=== PATIENT | male | born 2005 | race Caucasian/White ===

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

== ENCOUNTER 2024-10-21 19:18 | Emergency (ER) | payer OTHER, SELFPAY ==
--- NOTE | ~2024-10-21 | XR_ITS ---
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 RESULT: Lines, tubes, and devices: None. Lungs and pleura: Ill-defined patchy airspace disease in the left lower lobe. Cardiomediastinal silhouette: Stable. Other: No acute osseous or upper abdominal finding. IMPRESSION: Ill-defined left lower lobe airspace disease, may represent pneumonia in the appropriate clinical con text. Reviewed, dictated and finalized at location K. RESSOR TECHNICIAN IMPRESSION: Ill-defined left lower lobe airspace disease, may represent pneumonia in the ap propriate clinical context.
[2024-10-21 19:28] VITALS: BP 120/73; PULSE 113; RESP 20; TEMP 36.8; O2SAT 98
--- NOTE | 2024-10-21 19:47 | ED_ITS ---
HPI - General Adult General Chief complaint: Upper Respiratory Infection Stated complaint: Cough/Vomiting/Sore Throat Source: patient and family Mode of arrival: ambulatory Limitations: no limitations History of Present Illness HPI narrative: Patient presents for evaluation of sick symptoms. Symptom onset 1 week ago. His primary concern is a cough. He cannot tell me whether it is productive. Denies any shortness of breath, wheezing, fever, chills, nausea, diarrhea. He has had some episodes of vomiting secondary to coughing episodes. He was originally taking DayQuil and NyQuil for symptoms. He had improvement in his symptoms with recurrence thereafter. His mother recently had which she states is a common cold. He smokes marijuana. He does not smoke tobacco. Related Data Home Medications ?Medication ?Instructions ?Recorded ?Confirmed ?Last Taken ?Type divalproex 500 mg tablet,delayed mg PO 10/21/24 Unknown History release hydroxyzine pamoate 25 mg capsule mg 10/21/24 Unknown History olanzapine 20 mg tablet mg 10/21/24 Unknown History trazodone 50 mg tablet mg 10/21/24 Unknown History Allergies Allergy/AdvReac Type Severity Reaction Status Date / Time guanfacine Allergy Unknown Unknown Verified 10/21/24 19:54 Review of Systems Review of Systems: CONSTITUTIONAL: Denies fever, chills, or sweats. EYES: Denies visual changes, redness, or discharge. ENT: Denies rhinorrhea, congestion, sore throat, or otalgia. CARDIOVASCULAR: Denies chest pain, palpitations, or edema. RESPIRATORY: Reports cough. Denies shortness of breath or wheezing. GASTROINTESTINAL: Reports vomiting secondary to coughing episodes. Denies nausea otherwise. Denies abdominal pain or diarrhea. GENITOURINARY: Denies dysuria or hematuria. SKIN: Denies rash or itching. MUSCULOSKELETAL: Denies back pain, joint pain, or myalgia. NEUROLOGIC: Denies headache, numbness, dizziness, or weakness. PSYCHIATRIC: Denies anxiety or depression. [facility] Past Medical History Medical History Bipolar disorder Fatty liver Asperger's disorder Does not like people touching him. Surgical History Surgical History Hx of cholecystectomy Hx of tonsillectomy Family History Family History Mother Family history non-contributory Social History Social History Substance use: current Substance use type: marijuana Gender identity (if verbalized by the patient): Male Spiritual care concerns: No Exam Narrative: GENERAL: Appears acutely ill but nontoxic. HEAD: Normocephalic, atraumatic. EYES: PERRLA and EOMI. ENT: Nares clear, no rhinorrhea or epistaxis. Mucous membranes moist. Oropharynx without tonsillar hypertrophy exudate or other lesions. Bilateral TMs pearly alexander nonbulging NECK: Supple. No adenopathy or masses. No carotid bruits or JVD CHEST: Wheezing noted in lung bustos bilaterally. Cough present on exam. HEART: Regular rate and rhythm. No murmur heard. Normal peripheral pulses. ABDOMEN: Soft, nontender, nondistended, normal active bowel sounds. EXTREMITIES: Normal range of motion. No edema. SKIN: Warm, dry, no rash. NEURO: No focal deficits. Alert and oriented x3. PSYCH: Normal mood and affect. Course Course Emergency Course: This is a 19-year-old male who presented for evaluation of sick symptoms. COVID and influenza were negative. Chest x-ray consistent with pneumonia. Will discharge with azithromycin and Augmentin. He has tolerated steroids in the past. Will also discharge with prednisone and albuterol. Increase hydration. [id number]-katlxdt agents for symptom management. Follow up with primary provi reji. Go to the ER for worsening symptoms. Patient and mother in agreement with plan of care. Level of Care: Express Care Visit Vital Signs Vital signs: Vital Signs Temperature 36.8 C 10/21/24 19:28 Pulse Rate 113 H 10/21/24 19:28 Respiratory Rate 20 10/21/24 19:28 Blood Pressure 120/73 10/21/24 19:28 Pulse Oximetry 98 10/21/24 19:28 Oxygen Delivery Room Air 10/21/24 19:28 Temperature 36.8 C 10/21/24 19:28 Pulse Rate 113 H 10/21/24 19:28 Respiratory Rate 20 10/21/24 19:28 Blood Pressure 120/73 10/21/24 19:28 Pulse Oximetry 98 10/21/24 19:28 Oxygen Delivery Room Air 10/21/24 19:28 Medical Decision Making Vital Signs Vital Signs: Vital Signs Temperature 36.8 C 10/21/24 19:28 Pulse Rate 113 H 10/21/24 19:28 Respiratory Rate 20 10/21/24 19:28 Blood Pressure 120/73 10/21/24 19:28 Pulse Oximetry 98 10/21/24 19:28 Oxygen Delivery Room Air 10/21/24 19:28 Temperature 36.8 C 10/21/24 19:28 Pulse Rate 113 H 10/21/24 19:28 Respiratory Rate 20 10/21/24 19:28 Blood Pressure 120/73 10/21/24 19:28 Pulse Oximetry 98 10/21/24 19:28 Oxygen Delivery Room Air 10/21/24 19:28 Lab Data Labs: Lab Results 10/21/24 Range/Units 19:40 POC Influenza A Ag Negative (Negative) POC Influenza B Ag Negative (Negative) POC SARS CoV-2 Ag Negative (Negative) Imaging Data Radiologist's impression: EXAMINATION: XR chest 2V Exam Date/Time: 10/21/2024 19:26 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 RESULT: Lines, tubes, and devices: None. Lungs and pleura: Ill-defined patchy airspace disease in the left lower lobe. Cardiomediastinal silhouette: Stable. Other: No acute osseous or upper abdominal finding. IMPRESSION: Ill-defined left lower lobe airspace disease, may represent pneumonia in the appropriate clinical context. Discharge Plan Discharge Clinical Impression: Community acquired pneumonia Patient Disposition: Home, Self-Care Condition: Stable Instructions: Antibiotic Form, Community Acquired Pneumonia (DC) Patient Language: Mohawk Prescriptions: New azithromycin 250 mg tablet See Rx Instructions .ROUTE .COMPLEX Qty: 6 0RF Rx Instructions: For 250 mg dose pack: take 500 mg today (day 1), then 250 mg for 4 days (days 2-5) amoxicillin-pot clavulanate 875-125 mg tablet 1 tablet PO Q12H Qty: 20 0RF prednisone 50 mg tablet 50 mg PO DAILY Qty: 5 0RF albuterol sulfate 90 mcg/actuation aero powdr breath act w/sensor 2 inh inhalation Q6H Qty: 1 0RF No Action trazodone 50 mg tablet divalproex 500 mg tablet,delayed release (DR/EC) PO olanzapine 20 mg tablet hydroxyzine pamoate 25 mg capsule Follow-up/Referrals: Jose Patino MD [Physician] - Time of Disposition: 20:02
[2024-10-21 20:00] LABS: EDCOVIDSCREEN Negative (Negative); EDINFLUASCREEN Negative (Negative); EDINFLUBSCREEN Negative (Negative)
== END 2024-10-21 20:05 | disposition home or self-care (01) ==
PROVIDERS: Emergency Provider Nurse Practitioner
DX: J18.9 Pneumonia, unspecified organism (principal); Z20.822 Contact with and (suspected) exposure to COVID-19; F84.5 Asperger's syndrome; K76.0 Fatty (change of) liver, not elsewhere classified; F12.90 Cannabis use, unspecified, uncomplicated
CPT/HCPCS: 71046; 87426; 87804; 99213; G0463

== ENCOUNTER 2024-12-18 12:59 | Emergency (ER) | payer SELFPAY ==
[2024-12-18 13:27] VITALS: BP 145/90; PULSE 98; RESP 15; TEMP 37; O2SAT 99
--- NOTE | 2024-12-18 14:23 | ED.URI ---
HPI - URI/Sore Throat General Chief Complaint: Upper Respiratory Infection Stated Complaint: cough, SOB Time Seen by Provider: 12/18/24 14:23 Focused HPI: This is a 19 year old male that presents to the ER for cough, vomiting, sore throat, shortness of breath. Reports he has been sick since [place]. Denies fever, chest pain. GENERAL: Well-appearing, well-nourished, and in no acute distress. HEAD: Normocephalic, atraumatic. CHEST: Clear to auscultation. ?No respiratory distress. HEART: Regular rate and rhythm.? NEURO: ?Alert and oriented x3. Patient screened in triage and initial orders placed.? ?Additional care and disposition to be based upon?diagnostic testing and treatment. Related Data Home Medications ?Medication ?Instructions ?Recorded ?Confirmed ?Last Taken ?Type divalproex 500 mg tablet,delayed mg PO 10/21/24 Unknown History release hydroxyzine pamoate 25 mg capsule mg 10/21/24 Unknown History olanzapine 20 mg tablet mg 10/21/24 Unknown History trazodone 50 mg tablet mg 10/21/24 Unknown History Allergies Allergy/AdvReac Type Severity Reaction Status Date / Time guanfacine Allergy Unknown Unknown Verified 10/21/24 19:54 PMFSH Past Medical History Medical History Bipolar disorder Fatty liver Asperger's disorder Does not like people touching him. Surgical History Surgical History Hx of cholecystectomy Hx of tonsillectomy Family History Family History Mother Family history non-contributory Social History Social History Substance use: current Substance use type: marijuana Gender identity (if verbalized by the patient): Male Spiritual care concerns: No Course Vital Signs Vital signs: Vital Signs Temperature 98.6 F 12/18/24 13:27 Pulse Rate 98 12/18/24 13:27 Respiratory Rate 15 12/18/24 13:27 Blood Pressure 145/90 H 12/18/24 13:27 Pulse Oximetry 99 12/18/24 13:27 Oxygen Delivery Room Air 12/18/24 13:27 Temperature 98.6 F 12/18/24 13:27 Pulse Rate 98 12/18/24 13:27 Respiratory Rate 15 12/18/24 13:27 Blood Pressure 145/90 H 12/18/24 13:27 Pulse Oximetry 99 12/18/24 13:27 Oxygen Delivery Room Air 12/18/24 13:27 MDM - URI/Sore Throat MDM Narrative Medical decision making narrative: Patient left after medical screening exam and before any further evaluation or management Discharge Plan Discharge Clinical Impression: Upper respiratory infection Qualifiers: URI type: unspecified viral URI Qualified Code(s): J06.9 - Acute upper respiratory infection, unspecified Patient Disposition: Elopement After Seen by Prov Condition: Stable Patient Language: Faroese Prescriptions: No Action trazodone 50 mg tablet divalproex 500 mg tablet,delayed release (DR/EC) PO olanzapine 20 mg tablet hydroxyzine pamoate 25 mg capsule azithromycin 250 mg tablet See Rx Instructions .ROUTE .COMPLEX Qty: 6 0RF Rx Instructions: For 250 mg dose pack: take 500 mg today (day 1), then 250 mg for 4 days (days 2-5) amoxicillin-pot clavulanate 875-125 mg tablet 1 tablet PO Q12H Qty: 20 0RF prednisone 50 mg tablet 50 mg PO DAILY Qty: 5 0RF albuterol sulfate 90 mcg/actuation aero powdr breath act w/sensor 2 inh inhalation Q6H Qty: 1 0RF Follow-up/Referrals: PHYSICIAN,MAT MAN [Primary Care Provider] -
--- NOTE | 2024-12-18 14:57 | PC.NURSE ---
Pt not in waiting room for [facility] RN to obtain labs
--- NOTE | 2024-12-18 16:00 | PC.NURSE ---
Pt called for vital signs, no response
--- NOTE | 2024-12-18 16:10 | PC.NURSE ---
Pt called for a second time, no response, not in waiting room
== END 2024-12-18 16:31 | disposition left against medical advice (07) ==
LOC: ANHED 16:35
PROVIDERS: Emergency Provider Physician Assistant
DX: J06.9 Acute upper respiratory infection, unspecified (principal); F84.5 Asperger's syndrome; Z90.49 Acquired absence of other specified parts of digestive tract; Z79.899 Other long term (current) drug therapy; F31.9 Bipolar disorder, unspecified
CPT/HCPCS: 99281

== ENCOUNTER 2025-02-08 10:45 | Emergency (ER) | payer SELFPAY ==
--- NOTE | ~2025-02-08 | XR_ITS ---
XR knee LT 3V 02/08/2025 12:00 INDICATION: Left knee pain PROCEDURE: 3 views left the COMPARISON: No prior studies for comparison. FINDINGS: Fracture, dislocation or subluxation is not identified. There is sclerosis of the medial ti bial plateau. No discrete fracture line identified. The soft tissues appear within normal limits. No foreign bodies are identified. IMPRESSION: 1: Sclerosis medial tibial plateau, possibly technical. If there is concern for plateau fracture, cor relation with CT or MRI recommended. Reviewed, dictated and finalized at location A. IMPRESSION: 1: Sclerosis medial tibial plateau, possibly technical. If there is concern for plateau fracture, correlation with CT or MRI recommended.
--- NOTE | ~2025-02-08 | XR_ITS ---
EXAMINATION: XR chest 2V 02/08/2025 11:51 INDICATION: Cough PROCEDURE: 2 view chest COMPARISON: 02/18 FINDINGS: The lungs are clear. The cardiomediastinal silhouette is within normal limits. There are no pleural effusions. There is no pneumothorax suspected. There are cholecystectomy clips. IMPRESSION: 1: NO ACUTE CARDIOPULMONARY DISEASE. Reviewed, dictated and finalized at location A.
--- OUTSIDE RECORDS SUMMARY | 2025-02-08 10:47 | XMS_ITS | Clinical Summary ---
Author Organization [facility] Address [address] [place] [address] Phone Care Team Providers Care Securities Lending Trader Name Role Phone Provider, None Primary Care Provider Unavailabl e Allergies Active Allergy Reactions Criticality Noted Date Comments Guanfacine Rash,Swelling Medium 12/20/2015 Medications ondansetron (ZOFRAN-ODT) 4 MG TABLET DISPERSIBLE Take 1 Tablet by mouth every 8 hours as needed for Nausea - 1st line. 10 Tablet 3 Active methylPREDNISolo ne (MEDROL DOSPACK) 4 MG Tablet Therapy Pack See product package insert for dosing schedule 21 Tablet 4 Active traMADol (ULTRAM) 50 MG TabletIndication s:Sunburn due to tanning bed radiation Take 1-2 Tablets by mouth every 6 hours as needed for Moderate or more severe pain. 20 Tablet 4 Active Social History Tobacco Use Types Packs/Day Years Used Date Smoking Tobacco: Some Days Cigarettes Smokeless Tobacco: Never Tobacco Cessation:Ready to Q uit: Not Asked; Counseling Given: Not Answered Alcohol Use Standard Drinks/Week Comments Never 0 (1 standard drink = 0.6 oz pur e alcohol) Sex and Gender Information Value Date Recorded Sex Assigned at Not on file Legal Sex Male 7:18 PM CDT Gender Identity Not on file Sexual Orientation Not on file Last Filed Vital Signs Vital Sign Reading Time Taken Comments Blood Pressure 122/63 11/20/2023 3:43 AM UNIT ASSISTANT Pulse 78 11/20/2023 3:43 AM UNIT ASSISTANT Temperature 36.6 C (97.9 F) 11/20/2023 3:01 AM UNIT ASSISTANT Respiratory Rate 19 11/20/2023 3:01 AM UNIT ASSISTANT Oxygen Saturation 99% 11/20/2023 3:43 AM UNIT ASSISTANT Inhaled Oxygen Concentration - - Weight 117.9 kg (260 lb) 11/20/2023 3:01 AM UNIT ASSISTANT Height 176.5 cm (5' 9.5 ) 11/20/2023 3:01 AM UNIT ASSISTANT Body Mass Index 37.84 11/20/2023 3:01 AM UNIT ASSISTANT Plan of Treatment Health Maintenance Due Date Last Done Comments Hepatitis C Virus (HCV) Screening 2003 Pneumococcal Immunization Combined (1 of 1 - PPSV23) 2009 10/31/2004, 10/31/2004, 06/06/2004, Additional history exists Influenza Immunization (#1) 06/22/202401/20, 02/07/2016, 10/09/2012, Additional history exists SARS-COV-2 Immunization ( season) 2024 12/15/2021, 09/01/2021 Respiratory Syncytial Virus (RSV) Immunization (Adult) (1 - 1-dose 75+ series) 2078 Hepatitis B Immunization Completed 004, 03/23/2004, 2003, Additional history exists DTaP/Tdap/Td Immunization Discontinued 2013, 11/03/2008, 11/03/2008, Additional history exists TdaP Immunization Completed 04/30/2014 Human Papillomavirus (HPV) Immunization Completed 05/03/2021, 02/07/2016 Meningococcal Immunization (ACWY) Completed 05/03/2021, 02/07/2016, 02/07/2016 Meningococcal B Immunization Completed 04/07/2022, 11/25/2021 Rotavirus Immunization Aged Out No lo nger eligible based on patient's age to complete this topic Insurance [place] MEDICA[place] Care Teams Securities Lending Trader Relationship Specialty Start Date End Date Provider, None [place] PCP - General 09/08/19
--- OUTSIDE RECORDS SUMMARY | 2025-02-08 10:47 | XMS_ITS | Encounter Summary ---
Author Organization [facility] Address [address] [place] [address] Care Team Providers Care Public Health Physician Name Role Phone Abhijit López MD Primary Care Provider [phone] Leanne Grimes DO Unavailable [phone] Reason for Visit * Reason Onset Date Comments Forms/questionnaires 08/17/2020 Encounter Details Date Type Department Care Team (Late st Contact Info) Description 08/17/2020 Telephone [facility] [address] [place] [id number] Abhijit López MD [address] [place] [phone] Forms/questionnaires Social History Tobacco Use Types Packs/Day Years Used Date Smoking Tobacco: Passive Smo ke Exposure - Never Smoker Smokeless Tobacco: Never Alcohol Use Standard Drinks/Week Comments No 0 (1 standard drink = 0.6 oz pur e alcohol) Sex and Gender Information Value Date Recorded Sex Assigned at Not on file Legal Sex Male 5:42 AM 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 Answer Date of Assessment Author No 02/15/2017 4:27 PM CDT Devin Giraldo RN * Is person blind or have serious difficulty seeing? Answer Date of Assessment Author No 02/15/2017 4:27 PM CDT Devin Giraldo RN * Does person have serious difficulty walking/climbing stairs? Answer Date of Assessment Author No 02/15/2017 4:27 PM CDT Devin Giraldo RN * Does person have difficulty dressing/bathing? Answer Date of Assessment Author No 02/15/2017 4:27 PM CDT Devin Giraldo RN * Does person have difficulty doing errands alone? Answer Date of Assessment Author No 02/15/2017 4:27 PM CDT Devin Giraldo RN documented as of this encounter Mental Status * Does person have difficulty concentrating/remembering/making decisions? Answer Entry Date Author No 02/15/2017 4:27 PM CDT Devin Giraldo RN documented in this encounter Miscellaneous Notes * Telephone Encounter - Esthela Goncalves - 08/17/2020 9:32 AM CDT Sharon Jacobo from the [facility] called in requesting a letter of evaluation for the pt when he was diagnosed with Autism and Asperger's. If letter can be completed she would like for it to be faxed to [phone] documented in this encounter Plan of Treatment Not on file documented as of this encounter Visit Diagnoses Not on filedocumented in this encounter Care Teams Public Health Physician Relationship Specialty Start Date End Date Abhijit López MD [address] [place] [phone] PCP - General 12/31/18 Leanne Grimes DO [address] [place] [id number] Feather Boner Student Resident 04/21/19 documented as of this encounter
--- OUTSIDE RECORDS SUMMARY | 2025-02-08 10:47 | XMS_ITS | Data Portability ---
Author Organization [place] - [facility] [employer] [facility] Address [address] [place] [address] Assessment No assessment recorded. Plan of Treatment Reminders Order Date Submit Date Provider Last Modified By Organization Details Last Modified Time Details Appointments None recorded. Lab None recorded. Referral None recorded. Procedures None recorded. Surgeries None recorded. Imaging None recorded. Medication Orders cefpodoxime 200 mg tablet 2024 [facility], [address], [place], [address], 16:59:17 doxycycline hyclate 100 mg capsule 2024 025 [facility], [address], [place], [address], 16:59:15 albuterol sulfate HFA 90 mcg/actuati on aerosol inhaler 2024 025 [facility], [address], [place], [address], 17:03:19 Patient TargetsNo targets recorded. Patient Instructions Encounter Date Encounter Id Patient Instructions Last Modified By Organization Details Last Modified Time 11/01/2024 [id number] pneumonia: care instructions [email or web address] Not available 11/01/2024 16:59:09 Summary of Today's Visit: During today's visit, we discussed your persistent pneumonia symptoms, even after completing your previous antibiotic regimen. You have been experiencing a persistent cough, leading to vomiting of mucus, and your voice has been affected. You mentioned a history of marijuana smoking but denied any other lung or immune issues. Treatment Plan: Since the previous antibiotic treatment did not fully resolve your symptoms, we will start you on a new treatment plan with two antibiotics, cefpodoxime and doxycycline, which are more effective for individuals with a smoking history. Take medication as directed. Monitoring and Follow-Up: If possible, get an oxygen monitor to keep track of your oxygen levels. Your oxygen saturation should be 94% or above. If it drops below this level, or if you have worsening breathing difficulties, seek urgent medical attention. Additionally, arrange a follow-up appointment with a primary care provider next week to evaluate your recovery. You may need help from your mom if you are unsure about how to arrange this. Probiotics and Hydration: Due to the extended use of antibiotics, start taking probiotics to maintain healthy gut bacteria. You can consume probiotic-rich foods like yogurt, pickles, or fermented foods, or buy dicm-tyh-jiktouh probiotic supplements. Also, ensure you stay well-hydrated by drinking plenty of fluids to help alleviate your symptoms and support recovery. Important Reminders: Make sure to seek in-person medical evaluation if your condition does not improve or worsens. Remember to take your antibiotics as prescribed and monitor your symptoms closely. ALBUTEROL INHALER ALSO PROVIDER FOLLOW UP NEXT WEEk in 1-3 days Worsening symptoms go to emergency room. [email or web address] Not available 11/01/2024 17:04:34 Reason for Referral None Reported. Medical Equipment None Reported. Allergies Allergen ID Allergen Name Allergen Category Reaction Reaction Severity Criticality Documentation Date Start Date Code Code System Note Provider Name and Address Organization Details Recorded Time 028498 guanfacin e medicatio n Not available Not available Not available 11/01/2024 37096 RxNorm Not Available [facility] 16:49:31 Medications Name Sig Start Date Stop Date Status Note LastModified by Organization Details LastModified Time doxycycline hyclate 100 mg capsule Take 1 capsule twice a day by oral route as directed for 5 days. 2024 active Not Available Not Available Not Avai lable cefpodoxime 200 mg tablet Take 1 tablet every 12 hours by oral route as directed for 5 days. 2024 active Not Available Not Available Not Avai lable divalproex 500 mg tablet,delay ed release active ADDED BY VANESSA T: Not Available Not Available Not Available albuterol sulfate HFA 90 mcg/actuatio n aerosol inhaler Inhale 2 puffs every 4 hours by inhalation route as needed for 14 days. 2024 active Not Available Not Available Not Avai lable olanzapine 20 mg tablet active ADDED BY VANESSA T: Not Available Not Available Not Available Vitals None Recorded Social History None recorded. Functional Status None recorded. Mental Status None recorded. Family History Nothing Reported. Medical History No medical history recorded. Past Encounters Encounter ID Performer Location Encounter Start Date Encounter Closed Date Diagnosis/Indication Diagnosis SNOMED-CT Code Diagnosis ICD10 Code Diagnosis Note [id number] Adriane Patrick, GUILLERMO [facility] [address] [place] [address] 11/01/2024 16:49:52 11/01/2024 22:56:42 Community acquired pneumonia [id number] J18.9 Pneumonia - The patient was previously diagnosed with pneumonia, treated with azithromyc in but is still experienci ng symptoms like coughing and throwing up mucus, indicating persistenc e of the condition. - Prescribe Cefpodoxim e twice a day for at least five days.- Prescribe doxycyclin e as it covers more bacteria, especially for individual s who smoke.- Suggest purchasing an oxygen monitor to check oxygen levels at home, ensuring numbers are 94 or above.- Encourage follow-up with a primary care doctor next week to monitor recovery and vital signs.- Advise visiting the ER for IV antibiotic s if breathing worsens.- Recommend starting a probiotic due to the increased use of antibiotic s, suggesting foods like yogurt or fermented foods.- Emphasize hydration to help alleviate symptoms. Health Concerns Section Related Observation LastModified by Organization Detai ls LastModified Time None Recorded Concern Status LastModified by Organization Details LastModified Time None Recorded Advance Directives Directive None Recorded Payers Encounter Date Sequence Insurance Name Policy Number Policy Robison Covered Member ID Robison Member ID Guarantor Name 11/01/2024 1 LIAMShawn [facility] [id number] [employer] [id number] IP[employer] Francee r 11/01/2024 2 *SELF PAY* [id number] [employer] [id number] [employer] Notes Date Note Type Note Provider Name and Address Organization Details Recorded Time 01/11/202 5 text/html Call connected, patient greeted. Patient name, , telephone number and pharmacy, and location verified verbally with the patient. Telemedicine limitations reviewed, answered all questions the patient had about the telehealth interaction, and verbal consent obtained to treat. Clinician attests they are physically located in the following state at the time of visit: [place]. The patient also consents to the use of AI scribe technology. CC: Persistent pneumonia symptoms HPI: The patient presents with persistent pneumonia symptoms despite completing prescribed antibiotic treatment. The onset was noted around [place], and an official diagnosis via chest X-ray was confirmed approximately one week ago. The patient was initially prescribed azithromycin (Z-Zelalem) with a dosing regimen of two tablets on the first day, followed by one tablet daily. Symptoms have included significant coughing, frequently causing vomiting of mucus, and notable hoarseness of voice. Since starting the antibiotics, there has been some reduction in the vomiting frequency; however, the patient still feels unwell. The patient denies any history of smoking tobacco, though reports smoking marijuana. They do not consume alcohol currently and have no history of diabetes, prediabetes, asthma, or immunosuppressive conditions. There have been no known exposures to individuals with similar symptoms or recent COVID-19 exposures. The patient does not possess an oxygen monitor at home. The patient expressed difficulty in contacting the prior clinic due to long wait times and was unable to follow up easily. Additionally, the patient is not aware of their primary care physician, as these arrangements are typically managed by their mother. The patient denies allergies to antibiotics but confirmed an allergy to an unspecified item called 10x. Adriane Patrick, [employer], [address], [facility] 11/01/2024 17:04:40
--- OUTSIDE RECORDS SUMMARY | 2025-02-08 10:47 | XMS_ITS | Clinical Summary ---
Author Organization [facility] Address [address] [place] [address] Care Team Providers Care [employer]orer [employer] Name Role Phone Abhijit López MD Primary Care Provider [phone] Leanne Grimes DO Unavailable [phone] Source Comments [facility],non-owned Affiliates and Associated Physician Practices is amultiple site organization consisting of ambulatory clinics and hospital sitesin [place], [place], [place] and [place]. This disclosure is being madepursuant to the Care Everywhere program and may not contain all information available regarding this patient. Last updated 18.[facility] Allergies Active Allergy Reactions Criticality Noted Date Comments Guanfacine Rash Low 12/20/2015 Medications * Be aware that medications may not be up to date on this document. Alwaysverify current medications with the patient. ABSORICA 40 MG capsule TAKE 2 CAPSULES BY MOUTH DAILY 60 capsule 9 Active Additional Information Patient not taking.Reported on 02/07/2020 mupirocin (BACTROBAN) 2 % ointment Apply to affected area 2 times daily 15 g 1 9 Active Additional Information Patient not taking.Reported on 07/21/2019 metFORMIN (GLUCOPHAGE) 500 MG tablet Take 500 mg by mouth once daily Active ARIPiprazole (ABILIFY) 10 MG tablet Take 10 mg by mouth once daily Active ISOtretinoin 40 MG capsuleIndicati ons:Acne vulgaris Take one tablet by mouth daily with fatty meal. #30DS 30 capsule 9 Active Additional Information Patient not taking.Reported on 02/07/2020 hydrOXYzine pamoate (VISTARIL) 25 MG capsule TK ONE C PO HS PRN 0 Active PARoxetine (PAXIL) 30 MG tablet TK 1 T PO D 0 Active Active Problems Problem Noted Date Diagnosed Date Concern with appearance of ear 02/25/2020 Assessment & Plan (02/25/2020 6:40 PM CDT): L ear exam shows dried blood. R ear shows abnormal anatomy. Tympanogram completed that shows concern for R ear perforation -old vs new is difficult to say. At this time given multiple ear findings and history with bleeding from L ear will refer to ENT for further evaluation and management. Discussed in meantime, pt should maintain good ear care, avoid loud noises including his ear buds. Emesis 02/25/2020 Assessment & Plan (02/25/2020 6:45 PM CDT): 14-year-old male with ADHD/ODD, ANDRADE w/ fibrosis, obesity, recently seen in ED yesterday for 2 weeks of intermittent emesis after feeds. Pt was also seen by GI on 02/19 via [facility] and at time, given instruction to start PPI and follow up liver labs (completed in ED) here today for follow up. At this time review of labs in conjunction with exam today, re--assuring. No signs of acute bleeds or toxic signs on exam. Most likely the intermittent emesis seems to be due to GERD vs. PUD. At this time, encouraged family to start PPI therapy and maintain for at least 3 months. If no response to symptoms, will need to consider further evaluation and follow up with GI. Discussed red flag symptoms such as bloody emesis that would require urgent evaluation. History of staph infection 08/11/2019 Secondary impetiginization 05/29/2019 Cheilitis 03/17/2019 High risk medications (not anticoagulants) long- term use 03/17/2019 Acne cystica 01/22/2019 Encounter for long-term (cur rent) use of high-risk medication 01/22/2019 Back/shoulder pain 10/31/2018 Assessment & Plan (10/31/2018 9:28 PM [employer]AINABLE AGRICULTURE FACULTY): Has been having shoulder pain and midline back pain. Responsive to tylenol/ibuprofen. Has not started to PT yet. Etiology is most likely related to muscle spasm, rheumatologic disease are less likely given his history of no joint tenderness, swelling. Plan: C spine XR Thoracic spine XR If Xrays are clear for any dislocation/fracture start PT (referral made during the visit) Continue ibuprofen/tylenol for symptomatic pain relief Heat packs Be careful about Sleep hygiene Warming exercise prior to sportive activities RTC in 2 mo. WCC (well child check) 01/28/2018 Assessment & Plan (01/28/2018 10:38 AM CDT): Lane Busch is here for his adolescent well child check and has decreasing BMI attributed to weight management with the help of [facility] straight cutter machine and placement in special school with an IEP and counseling for mood disorder and anger managment. Immunizations: needs HPV Has dental home Age appropriate anticipatory guidance provided Return for next well child check; sooner if concerns arise. 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 On abilify for the last 5 mo- switched from Prozac- he reports his mood is ok. No SI at this moment. Assessment & Plan (01/28/2018 10:43 AM CDT): PHQ9 positive for dysthymia Followed by school therapist with concerns for suicidal thoughts and auditory hallucinations Positive family history of mental health problems Social service consult Patient has psych appointment March 20, also referred to [facility] in [place] Start Prozac 10 mg RTC one month Closed fracture of phalanx of left great toe 06/2018 Assessment & Plan (12/28/2017 10:04 PM SUSTAINABLE AGRICULTURE FACULTY): Assessment: ~1 week patient injured left first toe which was subsequently found to have a fracture with concern for involvement of growth plate. Extremity currently tender to palpation but neurovascularly intact. Plan: Referral to Orthopedic surgery for evaluation Tylenol prn for pain control Acne vulgaris 10/17/2017 Assessment & Plan (10/31/2018 9:18 PM SUSTAINABLE AGRICULTURE FACULTY): Treated with doxycyline ~6 mo ago and referral made to dermatology however he did not follow up with Derm clinic. Continues to have cystic acne on his back and multiple scars on his face. Plan: Re start Doxycyline for 3 mo and f.u with dermatology Continue local benzoyl peroxide as well. Assessment & Plan (01/28/2018 10:41 AM CDT): Cystic acne - face and back Rx Doxycycline Refer to Dermatology Assessment & Plan (12/28/2017 10:05 PM SUSTAINABLE AGRICULTURE FACULTY): Assessment: Lane presents with a two week history of worsening acne with pustule formation and drainage refractory to current home skin regimen. Patient has previously been trialed on Benzaclin which was moderately effective in temporary control of symptoms. Plan: Doxycycline 100 mg BID until symptoms persist Benzoyl Peroxide 10% cream Counseled to perform gentle skin hygiene Referral to Pediatric Dermatology Assessment & Plan (10/17/2017 11:21 AM SUSTAINABLE AGRICULTURE FACULTY): Patient with acne on face and back with some scarring and picking present. Plan: - Encouraged washing face twice per day - Will prescribe benza-clin initially daily then BID - Follow up in 3 weeks for acne - may need systemic antibiotics Influenza A 10/17/2017 Assessment & Plan (10/17/2017 11:18 AM SUSTAINABLE AGRICULTURE FACULTY): 12 year old with cough, fatigue, vomiting and sister with influenza A. Duration of symptoms 1.5 days. Tested positive for influenza A in clinic today. Plan: Supportive care including hydration, rest Tamiflu 75 mg BID for five days Encouraged hand-washing To RTC for persistent vomiting, decreased hydration Preseptal cellulitis of left eye 10/17/2017 Assessment & Plan (10/17/2017 11:20 AM SUSTAINABLE AGRICULTURE FACULTY): Patient with preseptal cellulitis of left eye - no pain with eye movement, no vision change concerning for orbital cellulitis Plan: - Clindamycin for 10 days - If pain with eye movements, rapid swelling or changes in vision go to ED Sudden visual loss of right eye 07/19/2017 Assessment & Plan (07/19/2017 12:11 PM CDT): Etiology unclear. No vascular disorder in family. Differential diagnoses have idiopathic vision loss, ocular migraine and other ocular disease. Plan: Referral made to Ophthalmology Myalgia 06/01/2017 Assessment & Plan (06/06/2017 9:35 AM CDT): C/o LE pain, muscle pains. Recent URI and continued viral symptoms. No trauma. 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 Currently participating in weight management clinic at [facility]. Plan: -Continue to follow Assessment & Plan (11/24/2016 4:08 PM SUSTAINABLE AGRICULTURE FACULTY): Assessment: Working on healthy eating/increased physical activity. Currently participating in weight management clinic at [facility]. Plan: -Continue to follow Mood disorder 11/24/2016 Oppositional defiant disorder 11/24/2016 Assessment & Plan (11/24/2016 3:00 PM SUSTAINABLE AGRICULTURE FACULTY): Assessment: Previously diagnosed with ODD. Gets therapy through school. Has upcoming appointment with Psychologist. Plan: -Referral to Psychiatry -F/u at next visit in 2 months ADHD (attention deficit hyperactivity disorder) 11/24/2016 Depression 11/24/2016 Assessment & Plan (02/25/2020 6:47 PM CDT): No SI or plans today. Pt states mood is little down. Therapist is aware already. Encouraged pt to discuss with psychiatrist and identifying hunt[place] people (therpaist, parents, etc) to discuss any concerns that may arise. Given resources for community resources as well. Assessment & Plan (07/19/2017 12:11 PM CDT): PHQ-9 depression screening (+) for mild depression. He is not using any medication now. Referral made to Psychology. Assessment & Plan (11/24/2016 4:08 PM SUSTAINABLE AGRICULTURE FACULTY): Assessment: PHQ-9 score 10 today. Endorses depressive symptoms daily. Previously on fluoxetine 10 mg, not currently on any medications. Concern for exacerbation of ODD/bahvioral issues with starting anti depressant medications. Will defer to Psychiatry for treatment of multiple Psychiatric problems. Plan: -Referral to Psychiatry Sleep disorder 11/24/2016 Assessment & Plan (11/24/2016 2:51 PM SUSTAINABLE AGRICULTURE FACULTY): Assessment: Has trouble falling asleep, stays up late playing games and usually goes to bed around 3am. As a result, falls asleep at school. Plan: -Prescription for Melatonin 5 mg Encounter for WCC (well child check) with abnorm al findings 11/24/2016 Assessment & Plan (11/24/2016 3:00 PM SUSTAINABLE AGRICULTURE FACULTY): Lane Busch is here for his adolescent well child check and has normal growth with good interval weight gain and normal development. Immunizations up to date Dental referral for prevention Age appropriate anticipatory guidance provided Return in 2 months Behavior concern 11/24/2016 Assessment & Plan (12/28/2017 10:15 PM SUSTAINABLE AGRICULTURE FACULTY): Assessment: Over the past 6 months, patient has been experiencing a depressed mood associated comments referring to suicidal ideations. Evaluated by therapist who has noted symptoms associated depression, SI requiring creation of a safety plan and auditory hallucinations. During interview, patient denies SI/HI/AVH and that his previous comments have been vocalized due to frustration. Plan Contact therapist at [facility] for further details into patient's case Counseled to continue working with therapist at scheduled appointments Follow up at [facility] in 2-[address] Velasquez or Dr. Vasquez Consideration for initiation of anti-depressants based on communication with the therapist as well as reevaluation during visit Per mother, patient has follow-up appointment with psychology in February Assessment & Plan (11/24/2016 4:04 PM SUSTAINABLE AGRICULTURE FACULTY): Assessment: H/o multiple behavioral diagnoses, including ODD, Mood disorder, ADHD, depression, Asperger's. Need to clarify diagnoses with Psychiatrist, will defer medication initiation until Psych diagnoses addressed. Plan: -Referral to Psychiatry -Readdress at follow up appt in 2 months Liver enzyme elevation 09/29/2015 Overview (10/19/2015): Test 07/20/14 07/07/15 10/13/15 ALT 63 85 139 AST 50 47 87 T bili 0.5 0.4 0.3 C bili 0.18 GGT Alb 4.8 4.9 4.5 Liver ultrasound: Mild to mod steatosis 07/21/15 MARNIE neg ASMA (0-19) 9 LKMA (<20) 1.9 HAV Kayla neg HBVsAg neg HBVcAB IgM Neg HCV Kayla neg Lipid profile Ferritin 87 Ceruloplasmin 34 Hgb A1C 5.7 PT/PTT Alpha-1-AT level 95 -phenotype MZ Med hepatic toxicity: Clonidine 0 Focalin 1+ Fluoxetine 1+ modest, transient elevations Lamotrigine 1+ Assessment & Plan (01/19/2017 5:59 PM CDT): Assessment: Lane is a 11 y.o male with history of autism, behavior problems, and fatty liver disease who presents for RUQ pain, elevated liver enzymes, and elevated GGT. RUQ ultrasound shows gallstones. Pain has improved and labs normalizing. Plan: - Sedated MRCP this afternoon, follow-up official read. - NPO (sips with meds) on MIVF - Return to regular diet after MRCP and saline lock IV - continue home Seroquel 50 mg at bedtime - Nexium 20 mg iv - Strict I/Os - Vitals q 8 hrs Assessment & Plan (01/18/2017 2:46 PM CDT): Assessment: Lane is a 11 y.o male with history of autism, behavior problems, and fatty liver disease who presents for RUQ pain, elevated liver enzymes, and elevated GGT. Given history of non-alcoholic fatty liver diease and 3.4 kg weight gain over past month, elevated ALT/AST and GGT and upper quadrant pain may be due to worsening NAFLD. Also being worked up for autoimmune hepatitis and labs currently pending. Also could consider cholelithiasis given obese and family history. However, not symptomatic with meals and diagnosis is more common in obese females. Plan: - RUQ ultrasound + doppler to evaluate liver and gallbladder - NPO (sips with meds) on MIVF - Return to regular diet after Ultrasound - continue home Seroquel 50 mg at bedtime - Nexium 20 mg iv - Strict I/Os - Vitals q 8 hrs Assessment & Plan (01/18/2017 12:45 AM CDT): Assessment: Lane is a 11 y.o male with history of autism, behavior problems, and fatty liver disease who presents for RUQ pain, elevated liver enzymes, and elevated GGT. Given history of non-alcoholic fatty liver diease and 3.4 kg weight gain over past month, elevated ALT/AST and GGT and upper quadrant pain may be due to worsening NAFLD. Also being worked up for autoimmune hepatitis and labs currently pending. Also could consider cholelithiasis given obese and family history. However, not symptomatic with meals and diagnosis is more common in obese females. Plan: -Admit to [facility] team/Dr. Lin -NPO (sips with meds) on MIVF. GI considering obtaining ultrasound in AM -f/u up labs obtained in ED per recommendation of Dr. Nettles -continue home Seroquel 50 mg at bedtime -Nexium 20 mg iv -Strict I/Os -Consider nutrition consult -Vitals q 8 hrs Assessment & Plan (11/24/2016 3:00 PM SUSTAINABLE AGRICULTURE FACULTY): Assessment: History of elevated transaminases, biopsy in 01/2016 showed steatohepatitis, Fibrosis stage 1A. Mom has not been able to make an appointment for f/u with Dr. Nettles. Plan: -Number to GI scheduling provided today Adenoid hypertrophy 02/11/2013 Left AOM and externa 02/11/2013 Assessment & Plan (06/06/2017 9:31 AM CDT): Erythematous L TM with purulent effusion in setting of recent URI consistent with acute otitis. Unable to fully visualize TM to determine if scarring vs residual perforation from prior tube placement. Purulent drainage in canal with mild canal wall erythema. Will treat as AOM and externa based on exam. Ciprodex drops Amoxcillin x 7 days If symptoms return, instructed to contact ENT Assessment & Plan (11/24/2016 4:09 PM SUSTAINABLE AGRICULTURE FACULTY): Assessment: History of multiple ear infections. Ears scarred on exam today. Hearing decreased in left ear, normal in right. No signs of infection. Plan: -Repeat hearing screen and ear exam at next visit Autistic disorder 01/06/2013 Assessment & Plan (11/24/2016 3:59 PM SUSTAINABLE AGRICULTURE FACULTY): Assessment: Previously diagnosed with autism. Attends 7th grade at [employer], has IEP. Getting therapy at school, has upcoming appt with Psychology. Plan: -Referral to Psychiatry -Continue to monitor, f/u in 2 months Gallstones Fatty liver disease, nonalcoholic Immunizations Immunization Administration Dates Next Due DTaP VACCINE IM (6wk-6yrs) 11/03/2008,,03/23/2004,2003, HEP A PEDS 2 DOSE 06/01/2006,11/02/2005 HEP B VACCINE, PED/ADOL 03/23/2004,2003,,2003 HIB-PRP-T 4 DOSE 10/31/2004,03/23/2004, 4,2003 Human Papilloma Virus Vaccine 02/07/2016 INFLUENZA A [id number] VACCINE 02/17/2010, 0 INFLUENZA VACCINE 02/07/2016, 2,08/22/2011,10/29/2009, MENINGOCOCAL MENINGITIS 02/07/2016 MMR 02/26/2008,10/31/2004 POLIO IPV 11/03/2008,03/23/2004,2003 ,2003 Pneumococcal Pcv13 Conj 10/31/2004,06/06/2004,,2003 TDAP (7yrs+) 04/30/2014 VARICELLA 02/26/2008,10/31/2004 Family History Medical History Relation Name Comments Bipolar Disorder Father Schizophrenia Father Other Mother gallbladder rem zach Anesthesia Reaction Neg Hx Asthma Neg Hx Bleeding Disorders Neg Hx CVA Neg Hx Cancer - Breast Neg Hx Cancer - Other Neg Hx Cancer - Skin, Melanoma Neg Hx Cancer - Skin, Non Melanoma Neg Hx Childhood Hearing Disorder Neg Hx Eczema Neg Hx Hemophilia Neg Hx Liver Disease Neg Hx Psoriasis Neg Hx Relation Name Status Comments Father Mother Social History Tobacco Use Types Packs/Day Years Used Date Smoking Tobacco: Passive Smo ke Exposure - Never Smoker Smokeless Tobacco: Never Alcohol Use Standard Drinks/Week Comments No 0 (1 standard drink = 0.6 oz pur e alcohol) Sex and Gender Information Value Date Recorded Sex Assigned at Not on file Legal Sex Male 5:42 AM SUSTAINABLE AGRICULTURE FACULTY Gender Identity Not on file Sexual Orientation Not on file Last Filed Vital Signs Vital Sign Reading Time Taken Comments Blood Pressure 128/68 02/25/2020 4:13 PM CDT Pulse 106 02/23/2020 11:59 PM CDT Temperature 36.8 C (98.2 F) 02/25/2020 4:13 PM CDT Respiratory Rate 20 02/23/2020 11:59 PM CDT Oxygen Saturation 97% 02/23/2020 11:59 PM CDT Inhaled Oxygen Concentration 100% 02/15/2017 3 :50 PM CDT Weight 113 kg (249 lb 1.9 oz) 02/25/2020 4:13 PM CDT Height 175 cm (5' 8.9 ) 02/23/2020 11:59 PM CDT Body Mass Index 36.9 02/23/2020 11:59 PM CDT Plan of Treatment Health Maintenance Due Date Last Done Comments PNEUMOCOCCAL VACCINE (1 of 2 - PPSV23) 12/26/2004 10/31/2004, 06/06/2004, 03/23/2004, Additional history exists COVID-19 VACCINE (#1) 2008 HPV VACCINE (2 - Male 2-dose series) 08/08/2016 02/07/2016 HIV SCREENING 2018 MENINGOCOCCAL (Group B) VACCINE SHARED DECISION-MAKING (1 of 2 - Standard) 2019 ZOSTER VACCINE (1 of 2) 2022 DTAP/TDAP/TD VACCINES (7 - Td or Tdap) 04/30/2024 04/30/2014, 11/03/2008, 10/31/2004, Additional history exists DEPRESSION SCREENING 10/22/2024 02/25/2020, 10/31/2018, 01/24/2018, Additional history exists INFLUENZA VACCINE (Season Ended) 2025 02/07/2016, 10/09/2012, 08/22/2011, Additional history exists HEPATITIS B VACCINE Completed 03/23/2004, 2003, 2003, Additional history exists HIB VACCINE Completed 10/31/2004, 11/2003, 2003, Additional history exists HEPATITIS C SCREENING Completed 10/13/2015 MENINGOCOCCAL GROUPS A/C/Y/W VACCINE Aged Out 02/07/2016 No longer eligible based on patient's age to complete this topic Medical Devices Implanted Type Area Lithographic Stripper Device Identifier Shelf Expiration Date Model / Serial / Lot Log [id number] - Tympanostomy Tubes [facility] - 1 - Tube Vent Cllr Butn 3mm X 1.5mm X 1.27mm Implanted:Qty: 2 on 02/11/2013 by Steve Greenfield MD at [facility] Bilateral : Ear [employer] 10/21/2017 [id number] / / [id number] Procedures Procedure Name Priority Date/Time Associated Diagnosis Comments HEPATITIS SCREEN ACUTE Routine 10/13/2015 10:39 AM [employer]STAINABLE AGRICULTURE FACULTY Elevated liver enzymes from Last 3 Months or Most Recently Relevant to Health Maintenance Results * HEPATITIS SCREEN ACUTE (10/13/2015 10:39 AM SUSTAINABLE AGRICULTURE FACULTY) HAV Antibody IgM Non Reactive Non Reactive 10/15/2015 8:56 AM [facility] HBsAg Non Reactive Non Reactive 10/15/2015 8:56 AM [facility] HBc Antibody IgM Non Reactive Non Reactive 10/15/2015 8:56 AM [facility] HCV Antibody Screen Non Reactive Non Reactive 10/15/2015 8:56 AM [facility] HCV S/C Ratio 0.12 0.00 - 0.79 10/15/2015 8:56 AM [facility] Comment: Vlpzqw-vb-ellqgj ratio (S/CO) <0.80: Non Reactive Blood BLOOD SPECIMEN / Unknown Lab Venipuncture / Unknown 10/13/2015 10:39 AM [employer]AINABLE A[employer]IC[employer]URE FAC[employer]Y 10/13/2015 11:36 AM SUSTAINABLE AGRICULTURE FACULTY Narrative [facility] - 10/15/2015 8:56 AM SUSTAINABLE AGRICULTURE FACULTY Non Reactive - Antibodies to Hepatitis C virus (HCV) were not detected, result does not exclude early acute HCV infection. Non Reactive - Antibodies to Hepatitis C virus (HCV) were not detected, result does not exclude early acute HCV infection. 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
--- OUTSIDE RECORDS SUMMARY | 2025-02-08 10:47 | XMS_ITS | Referral Summary ---
Author Organization [facility] Address [address] [place] [address] Care Team Providers Care Drink Waiter Name Role Phone Carmela Crandall MD Primary Care Pro vider Allergies Active Allergy Reactions Criticality Noted Date Comments Guanfacine Swelling Medium 04/21/2019 Medications ISOtretinoin (ABSORICA) 40 mg capsule TAKE 2 CAPSULES BY MOUTH DAILY 9 Active ibuprofen (ADVIL,MOTRIN) 600 mg tablet Take 1 tablet (600 mg total) by mouth 3 (three) times a day Take with food. 30 tablet 9 Active tretinoin (RETIN-A) 0.1 % cream APPLY TO FACE AT BEDTIME , LEAVE ON FOR AT LEAST 10 HOURS, AND THEN WASH OFF DAILY 3 Active sertraline (ZOLOFT) 100 mg tablet 3 Active PARoxetine (PAXIL) 30 mg tablet Take by mouth 0 Active ondansetron ODT (ZOFRAN-ODT) 4 mg disintegrating tablet Take 1 tablet (4 mg total) by mouth every 8 (eight) hours as needed 3 Active OLANZapine (ZyPREXA) 10 mg tablet 3 Active metFORMIN (GLUCOPHAGE) 500 mg tablet Take 1 tablet (500 mg total) by mouth daily Active mupirocin (BACTROBAN) 2 % ointment Apply topically 2 (two) times a day 9 Active amoxicillin-clavul anate (AUGMENTIN) 875-125 mg per tablet TAKE 1 TABLET BY MOUTH EVERY DAY FOR 30 DAYS 3 Active ARIPiprazole (ABILIFY) 10 mg tablet Take 1 tablet (10 mg total) by mouth daily Active buPROPion XL (WELLBUTRIN XL) 150 mg 24 hr tablet 3 Active hydrOXYzine (VISTARIL) 25 mg capsule TK ONE C PO HS PRN 0 Active Active Problems Problem Noted Date Diagnosed Date Advanced hepatic fibrosis 05/21/2023 BMI 40.0-44.9, adult 05/21/2023 Primary hypertension 05/21/2023 ANDRADE (nonalcoholic steatohepatitis) 04/14/2016 Resolved Problems Problem Noted Date Diagnosed Date Resolved Date Weight gain 04/14/2016 05/21/2023 Social History Tobacco Use Types Packs/Day Years Used Date Smoking Tobacco: Never Smokeless Tobacco: Never Tobacco Cessation:Counseling Given: Not Answered Personal Safety Answer Date Recorded Have you ever been in or are you currently in a harmful physical or emotional relationship or is someone making you feel afraid or unsafe? 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 Gender Identity Not on file Sexual Orientation Not on file Last Filed Vital Signs Vital Sign Reading Time Taken Comments Blood Pressure 122/70 05/28/2023 9:12 AM CDT Pulse 80 05/28/2023 9:12 AM CDT Temperature 37 C (98.6 F) 05/28/2023 8:12 AM CDT Respiratory Rate 16 05/28/2023 9:12 AM CDT Oxygen Saturation 97% 05/28/2023 9:12 AM CDT Inhaled Oxygen Concentration - - Weight 140.2 kg (309 lb) 05/28/2023 7:21 AM CDT Height 176.5 cm (5' 9.5 ) 05/28/2023 7:21 AM CDT Body Mass Index 44.98 05/28/2023 7:21 AM CDT Plan of Treatment Not on file Procedures Procedure Name Priority Date/Time Associated Diagnosis Comments HEPATITIS PANEL, ACUTE Routine 11/16/2022 4:19 PM MERCHANDISE WORKER from Last 3 Months or Most Recently Relevant to Health Maintenance Results * Hepatitis panel, acute (11/16/2022 4:19 PM MERCHANDISE WORKER) Hep A IgM Nonreactive Nonreactive HILTON GREENE (LUCY) Comment: Interpretive Data: If Hep A IgM Ab is reported as Equivocal, a new sample should be drawn in two weeks for testing. Current interpretive data was last revised on 20. Testing performed by: [facility], [address] [place] [address]., [address] Hep B core IgM Nonreactive Nonreactive C ERNER JC (LUCY) Comment: Interpretive Data If HepB Core IgM Ab is reported as Equivocal, a new sample should be drawn in two weeks for testing. Current interpretive data was last revised on 20. Testing performed by: [facility], [address] [place] [address]., [address] Hep C Ab Nonreactive Nonreactive HILTON GREENE (LUCY) Comment: Interpretive Data Nonreactive: Antibodies to HCV not detected. Does NOT exclude the possibility of recent exposure to HCV. Equivocal: Equivocal for HCV antibodies. Supplemental molecular testing will be automatically performed to determine infection status in accordance with current CDC screening recommendations. Reactive: Positive for HCV antibodies. This may represent current or past HCV infection. Supplemental molecular testing will be automatically performed to determine current infection status in accordance with current CDC screening recommendations. Interpretive data was last revised on 2020. Testing performed by: [facility], [address] [place] [address]., [address] HepBsAg Nonreactive Nonreactive HILTON GREENE (LUCY) Comment:Testing performed by : [address] [id number] Blood 11/16/2022 4:19 PM MERCHANDISE WORKER 11/17/2022 9:18 AM MERCHANDISE WORKER us Carmela Crandall MD LAB MICROBIOLOGY - GENERAL ORDERABLES Final Result DEREKJAS GREENE (LUCY) 1 [facility] [place] [address] from Last 3 Months or Most Recently Relevant to Health Maintenance Insurance [facility] [place] [address] Advance Directives For more information, please contact: [phone] * Full Code (Latest Code Status on File) Date Activated Date Inactivated Comments 05/28/2023 7:24 AM 05/28/2023 1:24 PM Care Teams Drink Waiter Relationship Specialty Start Date End Date Carmela Crandall MD PCP - General Pediatrics 11/16/22
--- OUTSIDE RECORDS SUMMARY | 2025-02-08 10:47 | XMS_ITS | Continuity of Care Document ---
Author Organization [facility] Address [address] [facility] [place] [address] Phone Care Team Providers Care Retail Attendant Name Role Phone Jesse Jackman MD Unavailable Unavailable Allergies, Adverse Reactions, Alerts Substance Reaction Status Criticality No Known Allergies Active No Inform ation Medications Medication Instructions Dosage Effective Dates (start - stop) Status Comments Valium 2 mg tablet take 1 tablet by oral route every day as needed 2 MG - Active Take one pill on e hour before lab drawn and ultrasound Procedures Procedure Date OFFICE/OUTPATIENT VISIT, EST OFFICE/OUTPATIENT VISIT, EST PREV VISIT, EST, AGE 5-11 OFFICE/OUTPATIENT VISIT, EST PREV VISIT, NEW, AGE 5-11 Advance Directives Directive Yes / No Effective Date File Name No Information Encounters Encounter Description Practice Location Reason(s) For Visit Diagnoses Date Provider Providers Copied on Encounter [facility], [address] [place], [id number], [place] tel:[phone] [facility] Medicine No Information 6 Gasper Molina. [address] [place], [place], [id number] , [place]. tel:[phone] Referring Provider: Jesse Jackman, [address] [facility] [address], [place], [place], [id number]. tel:[phone] OFFICE/OUTPA TIENT VISIT, EST [facility], [address], [place], [place], [id number], [place] tel:[phone] [facility] Medicine agitation1 (chief complaint) Fatty (change of) liver, not elsewhere classifiedAsperger' s syndrome 5 Gasper Molina. [address], [place], [place], [id number] , [place]. tel:[phone] Referring Provider: Jacqueline Ruiz [address], [place], [place], [id number]. tel:[phone] OFFICE/OUTPA TIENT VISIT, EST [facility], [address], [place], [place], [address], [place] tel:[phone] [facility] fatty liver (chief complaint) obesity (chief complaint) Dietary surveillance and counselingNonalcoho lic fatty liver diseaseOther obesity 5 Gasper Esparza [address], [place], [place], [address] , [place]. tel:[phone] Referring Provider: Jacqueline Ruiz [address], [place], [place], [id number]. tel:[phone] PREV VISIT, EST, AGE 5-11 [facility], [address], [place], [place], [id number], [place] tel:[phone] [facility] PHysical (chief complaint) Dietary surveillance and counselingRoutine medical exam Jun- 5 Gasper Esparza [address], [address], [place], [place], [address] , [place]. tel:[phone] Referring Provider: Jacqueline Ruiz [address], [place], [place], [id number]. tel:[phone] OFFICE/OUTPA TIENT VISIT, EST [facility], [address], [place], [place], [id number], [place] tel:[phone] [facility] Medicine headache (chief complaint) weight gain (chief complaint) depression (chief complaint) Dietary surveillance and counselingAbnormal weight gainHeadacheChronic depression Jun- 5 Gasper Esparza [address], [place], [place], [address] , . tel:[phone] Referring Provider: Jesse Jackman, [address], [place], [place], [id number]. tel:[phone] PREV VISIT, NEW, AGE 5-11 [facility], [address], [place], [place], [id number], [place] tel:[phone] [facility] Medicine Physical (chief complaint) Routine Medical ExamRoutine Medical Exam 4 Gasper Molina. [address], [place], [place], [address] , [place]. tel:[phone] Family History Family Member Type Diagnosis Age At Onset Mother Problem (finding) Alive and well Father Problem (finding) Diabetes mellitus Brother Problem (finding) Alive and well Payers Payer name Insurance type Covered green party ID Authoriza tion(s) No Information Social History Type Description Quantity Date Captured Comments Sex Male Smoking Status No Information Chief Complaint And Reason For Visit No Information Plan Of Treatment Date Type Action Status Referral Ordered: Ayush Hoffmann (related to Nonalcoholic fatty liver disease) ordered Referral Referred To: Ayush Hoffmann [address] [place], [id number] Ordered: Referrals: Ayush Hoffmann. Evaluate and treat ordered Referral Ordered: US EXAM, ABDOM, COMPLETE ordered Referral Ordered: Endocrinology - Pediatric (related to Abnormal weight gain) ordered Referral Ordered: Referrals: Endocrinology - Pediatric. Evaluate and treat ordered History Of Present Illness Encounter Date Complaint History Of Prese nt Illness agitation1 Pt has chronic a sperger disease and anxiety and dperession. Pt sees psychiatrist and he takes prozac and focalin Pt is very rebellent. Pt denies any thought of hurting himself or anybody else Pt has not done lab yet Pt is very combantant during lab work and he canot get lab done. His psychiatrist will not give him anything to calm him down before lab. Pt already seen dr. Hoffmann and will do more ultraosund and lab work. Mom states that he canot get any lab done due to his combative behavior obesity Additional infor mation: Pt is overweight. He is 97% in terms of his weight. fatty liver Pt has fatty belinda er Pt has mildly elevated LFt. Pt is overweight is not very healthy in terms of his diet Pt eats large portion and also is not very active. Pt plays game in front of computer. PHysical Pt needs annual physical. Pt has elevated LFT, wbc, HLP and also low thryoid. Pt has been gaing weight. Pt does not eat very healthy. Pt is not very active. Pt made appointment to see nutrition at weight management clinic at [facility] Pt has behavior issue including anxiety, depression and oppositonal defiant. Pt was on prozac but not working. Pt denies any thought of hurting himself or anybody else .Pt denies any other complaints depression Associated sympt oms include anxiety and headaches. Pertinent negatives include depression, diarrhea, fatigue or vomiting. Additional information: Pt has depression and anxiety. Pt sees psychiatrist and he takes prozac and doing ok. Pt denies any suicidal thought. weight gain Pertinent negati ves include constipation, dyspnea, fatigue, muscle weakness and vision changes. Additional information: Pt gained 9 pounds during last month. Pt is obese Pt has huge appetite and he is not very active. Pt is at 100% relative to his weight. headache Pertinent negati ves include vomiting. Additional information: Pt has been having headache at night for the past 3 days. Pt denies any head injury. Pt denies any nauea, vomiting, Pt denies any photophobia. Pt does not cry or fever. Medications Administered Medication Instructions Dosage Effective Dates (start - stop) Status Comments No Drug Therapy Prescribed Instructions Date Instruction Additional Infor mation Prescribed Diet Educ ation/Lifestyle Education Regarding Diet Related to Dietary Surveillance and Counseling Prescribed Activity and Exercise Education Related to Dietary Surveillance and Counseling Prescribed Diet Educ ation/Lifestyle Education Regarding Diet Related to Dietary Surveillance and Counseling Prescribed Activity and Exercise Education Related to Dietary Surveillance and Counseling Prescribed Diet Educ ation/Lifestyle Education Regarding Diet Related to Dietary Surveillance and Counseling Prescribed Activity and Exercise Education Related to Dietary Surveillance and Counseling Assessments Type Assessment Date No Information
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
--- OUTSIDE RECORDS SUMMARY | 2025-02-08 10:47 | XMS_ITS | Encounter Summary ---
Author Organization [facility] Address [address] [facility] [place] [address] Care Team Providers Care Deportation Officer Name Role Phone Josse Carrillo Kavya DO Unavailable [phone] Noble Pichardo MD Primary Care Provider [phone] Abhijit López MD Primary Care Provider Leanne Grimes DO Unavailable [phone] Encounter Details Date Type Department Care Team (Late st Contact Info) Description 01/26/2017 Telephone [facility] - [address] [address] Wes Nettles MD [address] [place] [address] Social History Tobacco Use Types Packs/Day Years Used Date Smoking Tobacco: Never Alcohol Use Standard Drinks/Week Comments No 0 (1 standard drink = 0.6 oz pur e alcohol) Sex and Gender Information Value Date Recorded Sex Assigned at Not on file 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 Answer Date of Assessment Author No 01/20/2017 11:31 AM Yumi Ingram RN * Is person blind or have serious difficulty seeing? Answer Date of Assessment Author No 01/20/2017 11:31 AM Yumi Ingram RN * Does person have serious difficulty walking/climbing stairs? Answer Date of Assessment Author No 01/20/2017 11:31 AM Yumi Ingram RN * Does person have difficulty dressing/bathing? Answer Date of Assessment Author No 01/20/2017 11:31 AM Yumi Ingram RN * Does person have difficulty doing errands alone? Answer Date of Assessment Author No 01/20/2017 11:31 AM Yumi Ingram RN documented as of this encounter Mental Status * Does person have difficulty concentrating/remembering/making decisions? Answer Entry Date Author Yes 01/20/2017 11:31 AM Yuim Ingram RN documented in this encounter Plan of Treatment Not on file documented as of this encounter Visit Diagnoses Not on filedocumented in this encounter Care Teams Deportation Officer Relationship Specialty Start Date End Date Noble Pichardo MD PCP - General 12/30/18 12/30/18 Abhijit López MD [address] [place] [id number] PCP - General 12/31/18 Josse Carrillo DO Student Resident 11/13/16 04/20/19 Leanne Grmies DO [address] [place] [address] Fur Weigher Student Resident 04/21/19 documented as of this encounter
--- OUTSIDE RECORDS SUMMARY | 2025-02-08 10:47 | XMS_ITS | Clinical Summary ---
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 Gender Identity Not on file Sexual Orientation Not on file Obstetrics History Last Filed Vital Signs Vital Sign Reading [...] 05/28/2023 7:21 AM CDT Plan of Treatment Health Maintenance Due Date Last Done Comments Depression Screening 2003 Pneumococcal vaccine <65 (1 of 2 - PPSV23) 12/26/2004 10/31/2004, 10/31/2004, 06/06/2004, Additional history exists Regular Well Visit/Exam 18-64 2021 Zoster Vaccine (1 of 2) 2022 DTaP/Tdap/Td Vaccine (7 - Td or Tdap) 04/30/2024 04/30/2014, 11/03/2008, 11/03/2008, Additional history exists Covid-19 Vaccine (3 - 2023-2 5 season) 2024 12/15/2021, 09/01/2021 Influenza Vaccine (#1) 2024 6, 02/07/2016, 10/09/2012, Additional history exists Varicella Vaccines Completed 02/26/2008, 10/31/2004 HPV Vaccines Completed 05/03/2021, 01/20, 02/07/2016 Meningococcal Vaccine Completed 05/03/2021 , 02/07/2016, 02/07/2016 Meningococcal B Vaccine Completed 04/07/2022, 11/25 Hepatitis C Screening Completed 11/16/2022 Procedures Procedure Name Priority Date/Time Associated Diagnosis Comments HEPATITIS PANEL, ACUTE Routine 11/16/2022 4:19 PM INSURANCE VERIFICATION SPECIALIST from Last 3 Months or Most Recently Relevant to Health Maintenance Results * Hepatitis panel, acute (11/16/2022 4:19 PM INSURANCE VERIFICATION SPECIALIST) Hep A IgM Nonreactive Nonreactive HILTON GREENE (LUCY) Comment: Interpretive Data: If Hep A IgM Ab is reported as Equivocal, a new sample should be drawn in two weeks for testing. Current interpretive data was last revised on 20. Testing performed by: [facility], [address] [place] [address], [place]., [address] Hep B core IgM Nonreactive Nonreactive Leela GREENE (LUCY) Comment: Interpretive Data If HepB Core IgM Ab is reported as Equivocal, a new sample should be drawn in two weeks for testing. Current interpretive data was last revised on 20. Testing performed by: [facility], [address] [place] [address], [place]., [address] Hep C Ab Nonreactive Nonreactive DEREKJAS JC (LUCY) Comment: Interpretive Data Nonreactive: Antibodies to [...] last revised on 2020. Testing performed by: [facility], [address] [place] [address]., [address] HepBsAg Nonreactive Nonreactive HILTON GREENE (LUCY) Comment:Testing performed by : [facility], [address] [place] [address]., [address] Blood 11/16/2022 4:19 PM INSURANCE VERIFICATION SPECIALIST 11/17/2022 9:18 AM INSURANCE VERIFICATION SPECIALIST Carmela Crandall MD LAB MICROBIOLOGY - GENERAL ORDERABLES Final Result HILTON JC ([place]) 1 [facility] [place] [address] from Last 3 Months or Most Recently Relevant to Health Maintenance Insurance [facility] [place] [id number] [facility] [place] [address] [facility] Advance Directives For more information, please contact: [phone] * Full Code (Latest Code Status on File) Date Activated Date Inactivated Comments 05/28/2023 7:24 AM 05/28/2023 1:24 PM Care Teams Facing Slitter Relationship Specialty Start Date End Date Carmela Crandall MD PCP - General Pediatrics 11/16/22
--- OUTSIDE RECORDS SUMMARY | 2025-02-08 10:47 | XMS_ITS | Encounter Summary ---
Author Organization [facility] Address [address] [place] [address] Care Team Providers Care Call Box Wirer Name Role Phone Josse Carrillo DO Unavailable [phone] Noble Pichardo MD Primary Care Provider Abhijit López MD Primary Care Provider Leanne Grimes DO Unavailable [phone] Reason for Visit * Reason Onset Date Comments Medication Clarification 11/27/2016 Encounter Details Date Type Department Care Team (Late st Contact Info) Description 11/27/2016 Telephone [facility] Pediatrics - [facility]s [address] [place] [address] Abhijit López MD [address] [place] [phone] Medication Clarification Social History Tobacco Use Types Packs/Day Years Used Date Smoking Tobacco: Never Alcohol Use Standard Drinks/Week Comments No 0 (1 standard drink = 0.6 oz pur e alcohol) Sex and Gender Information Value Date Recorded Sex Assigned at Not on file 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 Originally written for taking 10 tablets qHS. Changed to taking 1 tablet qHS. HES WRINGER * Telephone Encounter - Lakesha Gonzales MD - 11/27/2016 11:42 AM CST Called back [facility] at [phone] several times with no response. HES WRINGER * Telephone Encounter - Mary Iqbal - 11/27/2016 11:28 AM CST Pharmacy called in stating they need clarification on prescription written for melatonin 5 MG tablet Call back number verified.yes HES WRINGER documented in this encounter Plan of Treatment Not on file documented as of this encounter Visit Diagnoses Not on filedocumented in this encounter Care Teams Call Box Wirer Relationship Specialty Start Date End Date Noble Pichardo MD PCP - General 12/30/18 12/30/18 Abhijit López MD [address] [place] [phone] PCP - General 12/31/18 Josse Carrillo DO Student Resident 11/13/16 04/20/19 Leanne Grimes DO [address] [place] [address] Merchandise Shopper Student Resident 04/21/19 documented as of this encounter
[2025-02-08 11:17] VITALS: BP 142/84; PULSE 97; RESP 14; RESP 20; TEMP 36.9; O2SAT 98; O2SAT 99
--- OUTSIDE RECORDS SUMMARY | 2025-02-08 12:11 | XMS_ITS | Encounter Summary ---
Author Organization [facility] Address [address] [facility] [place] [address] Care Team Providers Care Paleontological Helper Name Role Phone Josse Carrillo DO Unavailable [phone] Noble Pichardo MD Primary Care Provider Abhijit López MD Primary Care Provider Leanne Grimes DO Unavailable [phone] Reason for Visit * Reason Onset Date Comments Medication Clarification 11/27/2016 Encounter Details Date Type Department Care Team (Late st Contact Info) Description 11/27/2016 Telephone [facility] - [facility] Pediatrics [address] [place] [address] Abhijit López MD [address] [place] [phone] Medication Clarification Social History Tobacco Use Types Packs/Day Years Used Date Smoking Tobacco: Never Alcohol Use Standard Drinks/Week Comments No 0 (1 standard drink = 0.6 oz pur e alcohol) Sex and Gender Information Value Date Recorded Sex Assigned at Not on file Legal Sex Male 5:42 AM NURSE COMPANION Gender Identity Not on file Sexual Orientation Not on file documented as of this encounter Miscellaneous Notes * Telephone Encounter - Lakesha Gonzales MD - 11/27/2016 12:04 PM CST Called [facility] regarding Melatonin prescription. Originally written for taking 10 tablets qHS. Changed to taking 1 tablet qHS. E COMPANION * Telephone Encounter - Lakesha Gonzales MD - 11/27/2016 11:42 AM CST Called back [facility] Pharm[facility] at [phone] several times with no response. E COMPANION * Telephone Encounter - Mary Iqbal - 11/27/2016 11:28 AM CST Pharmacy called in stating they need clarification on prescription written for melatonin 5 MG tablet Call back number verified.yes E COMPANION documented in this encounter Plan of Treatment Not on file documented as of this encounter Visit Diagnoses Not on filedocumented in this encounter Care Teams Paleontological Helper Relationship Specialty Start Date End Date Noble Pichardo MD PCP - General 12/30/18 12/30/18 Abhijit López MD [address] [place] [phone] PCP - General 12/31/18 Josse Carrillo DO Student Resident 11/13/16 04/20/19 Leanne Grimes DO [address] [place] [address] Sugar Grinder Student Resident 04/21/19 documented as of this encounter
--- OUTSIDE RECORDS SUMMARY | 2025-02-08 12:11 | XMS_ITS | Encounter Summary ---
Author Organization [facility] Address [address] [facility] [place] [address] Care Team Providers Care Clam Shucking Machine Tender Name Role Phone Josse Carrillo Kavya DO Unavailable [phone] Noble Pichardo MD Primary Care Provider Abhijit López MD Primary Care Provider Leanne Grimes DO Unavailable [phone] Encounter Details Date Type Department Care Team (Late st Contact Info) Description 01/26/2017 Telephone [facility] - [address] [address] Wes Nettles MD [address] [place] [address] Social History Tobacco Use Types Packs/Day Years Used Date Smoking Tobacco: Never Alcohol Use Standard Drinks/Week Comments No 0 (1 standard drink = 0.6 oz pur e alcohol) Sex and Gender Information Value Date Recorded Sex Assigned at Not on file Legal Sex Male 5:42 AM PLASTIC MANAGER Gender Identity Not on file Sexual Orientation [...] Entry Date Author Yes 01/20/2017 11:31 AM Yumi Ingram RN documented in this encounter Plan of Treatment Not on file documented as of this encounter Visit Diagnoses Not on filedocumented in this encounter Care Teams Clam Shucking Machine Tender Relationship Specialty Start Date End Date Noble Pichardo MD PCP - General 12/30/18 12/30/18 Abhijit López MD [address] [place] [phone] PCP - General 12/31/18 Josse Carrillo DO Student Resident 11/13/16 04/20/19 Laenne Grimes DO [address] [place] [address] Computer Game Designer Student Resident 04/21/19 documented as of this encounter
--- OUTSIDE RECORDS SUMMARY | 2025-02-08 12:12 | XMS_ITS | Encounter Summary ---
Author Organization [facility] Address [address] [facility] [place] [address] Care Team Providers Care Waiter/Waitress Club Name Role Phone Abhijit López MD Primary Care Provider [phone] Leanne Grimes DO Unavailable [phone] Reason for Visit * Reason Onset Date Comments Forms/questionnaires 08/17/2020 Encounter Details Date Type Department Care Team (Late st Contact Info) Description 08/17/2020 Telephone [facility] Pediatrics - [facility] Pediatrics [address] [place] [address] Abhijit López MD [address] [place] [phone] Forms/questionnaires Social History Tobacco Use Types Packs/Day Years Used Date Smoking Tobacco: Passive Smo ke Exposure - Never Smoker Smokeless Tobacco: Never Alcohol Use Standard Drinks/Week Comments No 0 (1 standard drink = 0.6 oz pur e alcohol) Sex and Gender Information Value Date Recorded Sex Assigned at Not on file Legal Sex Male 5:42 AM GRAPE GROWER Gender Identity Not on file Sexual Orientation [...] 9:32 AM CDT Sharon Jacobo from the [facility] called in requesting a letter of evaluation for the pt when he was diagnosed with Autism and Asperger's. If letter can be completed she would like for it to be faxed to [phone] documented in this encounter Plan of Treatment Not on file documented as of this encounter Visit Diagnoses Not on filedocumented in this encounter Care Teams Waiter/Waitress Club Relationship Specialty Start Date End Date Abhijit López MD [address] [place] [phone] PCP - General 12/31/18 Leanne Grimes DO [address] [place] [address] Director Of Retail Operations Student Resident 04/21/19 documented as of this encounter
--- OUTSIDE RECORDS SUMMARY | 2025-02-08 12:12 | XMS_ITS | Clinical Summary ---
Author Organization [facility] Address [address] [place] [address] Care Team Providers Care Convict Guard Name Role Phone Carmela Crandall MD Primary [...] on file Legal Sex Male 3:36 PM SHAKER OPERATOR Gender Identity Not on file Sexual Orientation [...] 5 season) 2024 12/15/2021, 09/01/2021 Influenza Vaccine (Season Ended) 2025 02/07/2016, 02/07/2016, 10/09/2012, Additional history exists Varicella Vaccines Completed 02/26/2008, 10/31/2004 HPV Vaccines Completed 05/03/2021, 01/20, 02/07/2016 Meningococcal Vaccine Completed 05/03/2021 , 02/07/2016, 02/07/2016 Meningococcal B Vaccine Completed 04/07/2022, 11/25 Hepatitis C Screening Completed 11/16/2022 Procedures Procedure Name Priority Date/Time Associated Diagnosis Comments HEPATITIS PANEL, ACUTE Routine 11/16/2022 4:19 PM SHAKER OPERATOR from Last 3 Months or Most Recently Relevant to Health Maintenance Results * Hepatitis panel, acute (11/16/2022 4:19 PM SHAKER OPERATOR) Hep A IgM Nonreactive Nonreactive HILTON GREENE (LUCY) Comment: Interpretive Data: If Hep A IgM Ab is reported as Equivocal, a new sample should be drawn in two weeks for testing. Current interpretive data was last revised on 20. Testing performed by: [facility], [address] [place] [address], [place]., [address] Hep B core IgM Nonreactive Nonreactive Leela GREENE (LUCY) Comment: Interpretive Data If HepB Core IgM Ab is reported as Equivocal, a new sample should be drawn in two weeks for testing. Current interpretive data was last revised on 20. Testing performed by: [facility], [address] [place] [address], [place]., [address] Hep C Ab Nonreactive Nonreactive HILTON GREENE [...] last revised on 2020. Testing performed by: [facility], [address] [place] [address]., [address] HepBsAg Nonreactive Nonreactive HILTON JC (LUCY) Comment:Testing performed by : [facility], [address] [place] [address]., [address] Blood 11/16/2022 4:19 PM SHAKER OPERATOR 11/17/2022 9:18 AM SHAKER OPERATOR Carmela Crandall MD LAB MICROBIOLOGY - GENERAL ORDERABLES Final Result Performing Organization Address City/State/[facility] Co de Phone Number HILTON JC (STAPLES) [address] [facility] Department [place] [address] from Last 3 Months or Most Recently Relevant to Health Maintenance Insurance [facility] [id number] [address] [facility] Advance Directives For more information, please contact: [phone] * Full Code (Latest Code Status on File) Date Activated Date Inactivated Comments 05/28/2023 7:24 AM 05/28/2023 1:24 PM Care Teams Convict Guard Relationship Specialty Start Date End Date Carmela Crandall MD PCP - General Pediatrics 11/16/22
--- OUTSIDE RECORDS SUMMARY | 2025-02-08 12:12 | XMS_ITS | Continuity of Care Document ---
Author Organization [facility] Address [address] [place] [address] Phone Care Team Providers Care Mill Labor Supervisor Name Role Phone Jesse Jackman MD Unavailable [...] Diagnoses Date Provider Providers Copied on Encounter [facility], [address] [place], [id number], [place] tel:[phone] [facility] Medicine No Information 6 Gasper Molina. [address] [place], [place], [id number] , [place]. tel:[phone] Referring Provider: Jesse Jackman, [address] [facility] [address], [place], [place], [id number]. tel:[phone] OFFICE/OUTPA TIENT VISIT, EST [facility], [address] [place], [place], [address], [place] tel:[phone] [facility] Medicine agitation1 (chief complaint) Fatty (change of) liver, not elsewhere classifiedAsperger' s syndrome 5 Gasper Molina. [address], [place], [place], [address] , [place]. tel:[phone] Referring Provider: Jacqueline Ruiz [address], [place], [place], [id number]. tel:[phone] OFFICE/OUTPA TIENT VISIT, EST [facility], [address], [place], [place], [address], [place] tel:[phone] [facility] fatty liver (chief complaint) obesity (chief complaint) Dietary surveillance and counselingNonalcoho lic fatty liver diseaseOther obesity 5 Gasper Esparza [address], [place], [place], [address] , [place]. tel:[phone] Referring Provider: Jacqueline Ruiz [address], [place], [place], [address]. tel:[phone] PREV VISIT, EST, AGE 5-11 [facility], [address], [place], [address], [place] tel:[phone] [facility] PHysical (chief complaint) Dietary surveillance and counselingRoutine medical exam Jun- 5 Gasper Esparza [address], [place], [place], [address] , [place]. tel:[phone] Referring Provider: Jacqueline Ruiz [address], [place], [place], [address]. tel:[phone] OFFICE/OUTPA TIENT VISIT, EST [facility], [address], [place], [place], [address], [place] tel:[phone] [facility] Medicine headache (chief complaint) weight gain (chief complaint) depression (chief complaint) Dietary surveillance and counselingAbnormal weight gainHeadacheChronic depression Jun- 5 Gasper Esparza [address], [place], [place], [address] , . tel:[phone] Referring Provider: Jesse Jackman, [address], [place], [place], [address]. tel:[phone] PREV VISIT, NEW, AGE 5-11 [facility], [address], [place], [place], [address], [place] tel:[phone] [facility] Medicine Physical (chief complaint) Routine Medical ExamRoutine Medical Exam 4 Gasper Molina. [address], [place], [place], [address] , [place]. tel:[phone] Family History Family Member Type Diagnosis Age At Onset Mother Problem (finding) Alive and well Father Problem (finding) Diabetes mellitus Brother Problem (finding) Alive and well Payers Payer name Insurance type Covered democrat ID Authoriza tion(s) No Information Social History Type Description Quantity Date Captured Comments Sex Male Smoking Status No Information Chief Complaint And Reason For Visit No Information Plan Of Treatment Date Type Action Status Referral Ordered: Ayush Hoffmann (related to Nonalcoholic fatty liver disease) ordered Referral Referred To: Ayush Hoffmann [address] [place], [id number] Ordered: Referrals: Ayush Hoffmann. Evaluate and treat [...] lab done due to his combative behavior fatty liver Pt has fatty belinda er Pt has mildly elevated LFt. Pt is overweight is not very healthy in terms of his diet Pt eats large portion and also is not very active. Pt plays game in front of computer. obesity Additional infor mation: Pt is overweight. He is 97% in terms of his weight. PHysical Pt needs annual physical. Pt has elevated LFT, wbc, HLP and also low thryoid. Pt has been gaing weight. Pt does not eat very healthy. Pt is not very active. Pt made appointment to see nutrition at weight management clinic at [facility] Pt has behavior issue including anxiety, depression and oppositonal defiant. Pt was on prozac but not working. Pt denies any thought of hurting himself or anybody else .Pt denies any other complaints headache Pertinent negati ves include vomiting. Additional information: Pt has been having headache at night for the past 3 days. Pt denies any head injury. Pt denies any nauea, vomiting, Pt denies any photophobia. Pt does not cry or fever. weight gain Pertinent negati ves include constipation, dyspnea, fatigue, muscle weakness and vision changes. Additional information: Pt gained 9 pounds during last month. Pt is obese Pt has huge appetite and he is not very active. Pt is at 100% relative to his weight. depression Associated sympt oms include anxiety and headaches. Pertinent negatives include depression, diarrhea, fatigue or vomiting. Additional information: Pt has depression and anxiety. Pt sees psychiatrist and he takes prozac and doing ok. Pt denies any suicidal thought. Medications Administered Medication Instructions Dosage Effective Dates (start - stop) Status Comments No Drug Therapy Prescribed Instructions Date Instruction Additional Infor mation Prescribed Activity and Exercise Education Related to [...] Diet Related to Dietary Surveillance and Counseling Assessments Type Assessment Date No Information
--- OUTSIDE RECORDS SUMMARY | 2025-02-08 12:12 | XMS_ITS | Referral Summary ---
Author Organization [facility] Address [address] [place] [address] Care Team Providers Care Business Services Officer Name Role Phone Carmela Crandall MD Primary [...] on file Legal Sex Male 3:36 PM ADMINISTRATIVE SERVICES DIRECTOR Gender Identity Not on file Sexual Orientation [...] HEPATITIS PANEL, ACUTE Routine 11/16/2022 4:19 PM ADMINISTRATIVE SERVICES DIRECTOR from Last 3 Months or Most Recently Relevant to Health Maintenance Results * Hepatitis panel, acute (11/16/2022 4:19 PM ADMINISTRATIVE SERVICES DIRECTOR) Hep A IgM Nonreactive Nonreactive HILTON GREENE (LUCY) Comment: Interpretive Data: If Hep A IgM Ab is reported as Equivocal, a new sample should be drawn in two weeks for testing. Current interpretive data was last revised on 20. Testing performed by: [facility], [address] [place] [address]., [address] Hep B core IgM Nonreactive Nonreactive C ERNER JC (LUCY) Comment: Interpretive Data If HepB Core IgM Ab is reported as Equivocal, a new sample should be drawn in two weeks for testing. Current interpretive data was last revised on 20. Testing performed by: [facility], [address] [place] [address]., [address] Hep C Ab Nonreactive Nonreactive HILTON GREENE [...] last revised on 2020. Testing performed by: [facility], [address] [place] [address]., [address] HepBsAg Nonreactive Nonreactive HILTON GREENE (LUCY) Comment:Testing performed by : [address] [address] Blood 11/16/2022 4:19 PM ADMINISTRATIVE SERVICES DIRECTOR 11/17/2022 9:18 AM ADMINISTRATIVE SERVICES DIRECTOR us Carmela Crandall MD LAB MICROBIOLOGY - GENERAL ORDERABLES Final Result DEREKJAS GREENE (LUCY) 1 [facility] [place] [address] from Last 3 Months or Most Recently Relevant to Health Maintenance Insurance [facility] Address: [id number] [place] [address] [facility] Address: [address] [place] [phone] [employer] [facility] [address]PO [place] [place] [address] [facility] Address: [address] [address] [place] [address] Advance Directives For more information, please contact: [phone] * Full Code (Latest Code Status on File) Date Activated Date Inactivated Comments 05/28/2023 7:24 AM 05/28/2023 1:24 PM Care Teams Business Services Officer Relationship Specialty Start Date End Date Carmela Crandall MD PCP - General Pediatrics 11/16/22
--- OUTSIDE RECORDS SUMMARY | 2025-02-08 12:12 | XMS_ITS | Encounter Summary ---
Author Organization [facility] Address [address] [facility] [place] [address] Care Team Providers Care Delphi Developer Name Role Phone Josse Carrillo Kavya DO Unavailable [phone] Noble Pichardo MD Primary Care Provider [phone] Abhijit López MD Primary Care Provider [phone] Leanne Grimes DO Unavailable [phone] Reason for Visit * Reason Onset Date Comments Concerns 02/06/2018 Encounter Details Date Type Department Care Team (Late st Contact Info) Description 02/06/2018 Telephone [facility] Pediatrics - [facility] Pediatrics [facility] [place] [address] Margaret Talley Concerns Social History Tobacco Use Types Packs/Day Years Used Date Smoking Tobacco: Never Alcohol Use Standard Drinks/Week Comments No 0 (1 standard drink = 0.6 oz pur e alcohol) Sex and Gender Information Value Date Recorded Sex Assigned at Not on file Legal Sex Male 5:42 AM SPEECH PATHOLOGIST Gender Identity Not on file Sexual Orientation [...] Shukla's, 12 y.o. male, Tyeast Mancilla [facility] calling in regards to Lane's last [...] on filedocumented in this encounter Care Teams Delphi Developer Relationship Specialty Start Date End Date Noble Pichardo MD PCP - General 12/30/18 12/30/18 Abhijit López MD [address] [place] [phone] PCP - General 12/31/18 Josse Carrillo DO Student Resident 11/13/16 04/20/19 Leanne Grimes DO [address] [place] [address] Mechanical Test Engineer Student Resident 04/21/19 documented as of this encounter
--- OUTSIDE RECORDS SUMMARY | 2025-02-08 12:12 | XMS_ITS | Clinical Summary ---
Author Organization [facility] Address [address] [place] [address] Phone Care Team Providers Care Metal Wire Technician Name Role Phone Provider, None Primary Care [...] Comments Blood Pressure 122/63 11/20/2023 3:43 AM CONE TRUCKER Pulse 78 11/20/2023 3:43 AM CONE TRUCKER Temperature 36.6 C (97.9 F) 11/20/2023 3:01 AM CONE TRUCKER Respiratory Rate 19 11/20/2023 3:01 AM CONE TRUCKER Oxygen Saturation 99% 11/20/2023 3:43 AM CONE TRUCKER Inhaled Oxygen Concentration - - Weight 117.9 kg (260 lb) 11/20/2023 3:01 AM CONE TRUCKER Height 176.5 cm (5' 9.5 ) 11/20/2023 3:01 AM CONE TRUCKER Body Mass Index 37.84 11/20/2023 3:01 AM CONE TRUCKER Plan of Treatment Health Maintenance Due Date [...] topic Insurance [place] Care Teams Metal Wire Technician Relationship Specialty Start Date End Date Provider, None [place] PCP - General 09/08/19
--- OUTSIDE RECORDS SUMMARY | 2025-02-08 12:12 | XMS_ITS | Clinical Summary ---
Author Organization [facility] Address [address] [place] [address] Care Team Providers Care Catalyst Operator Gasoline Name Role Phone Abhijit López MD Primary Care Provider [phone] Leanne Grimes DO Unavailable [phone] Source Comments [facility],non-owned Affiliates and Associated Physician Practices is amultiple site organization consisting of ambulatory clinics and hospital sitesin [place], [place], [place] and [place]. This disclosure is being madepursuant to the Care Everywhere program and may not contain all information available regarding this patient. Last updated 18.[facility] Allergies Active Allergy Reactions Criticality Noted Date [...] also seen by GI on 02/19 via [facility] and at time, given instruction to [...] 10/31/2018 Assessment & Plan (10/31/2018 9:28 PM YARN SKEINS EXAMINER): Has been having shoulder pain and midline [...] to weight management with the help of [facility] photographic enlarger operator and placement in special school with an IEP and counseling for mood disorder and anger managment. Immunizations: needs HPV Has dental home Age appropriate anticipatory guidance provided Return for next well child check; sooner if concerns arise. Depressed mood 01/28/2018 Assessment & Plan (10/31/2018 9:34 PM YARN SKEINS EXAMINER): Following by glue mill operator. On abilify for the last 5 mo- switched from Prozac- he reports his mood is ok. No SI at this moment. Assessment & Plan (01/28/2018 10:43 AM CDT): PHQ9 positive for dysthymia Followed by school therapist with concerns for suicidal thoughts and auditory hallucinations Positive family history of mental health problems Social service consult Patient has psych appointment March 20, also referred to [facility] in [place] Start Prozac 10 mg RTC one month Closed fracture of phalanx of left great toe 06/2018 Assessment & Plan (12/28/2017 10:04 PM YARN SKEINS EXAMINER): Assessment: ~1 week patient injured left first toe which was subsequently found to have a fracture with concern for involvement of growth plate. Extremity currently tender to palpation but neurovascularly intact. Plan: Referral to Orthopedic surgery for evaluation Tylenol prn for pain control Acne vulgaris 10/17/2017 Assessment & Plan (10/31/2018 9:18 PM YARN SKEINS EXAMINER): Treated with doxycyline ~6 mo ago and [...] Dermatology Assessment & Plan (12/28/2017 10:05 PM YARN SKEINS EXAMINER): Assessment: Lane presents with a two week [...] Dermatology Assessment & Plan (10/17/2017 11:21 AM YARN SKEINS EXAMINER): Patient with acne on face and back with some scarring and picking present. Plan: - Encouraged washing face twice per day - Will prescribe benza-clin initially daily then BID - Follow up in 3 weeks for acne - may need systemic antibiotics Influenza A 10/17/2017 Assessment & Plan (10/17/2017 11:18 AM YARN SKEINS EXAMINER): 12 year old with cough, fatigue, vomiting and sister with influenza A. Duration of symptoms 1.5 days. Tested positive for influenza A in clinic today. Plan: Supportive care including hydration, rest Tamiflu 75 mg BID for five days Encouraged hand-washing To RTC for persistent vomiting, decreased hydration Preseptal cellulitis of left eye 10/17/2017 Assessment & Plan (10/17/2017 11:20 AM YARN SKEINS EXAMINER): Patient with preseptal cellulitis of left eye [...] Currently participating in weight management clinic at [facility]. Plan: -Continue to follow Assessment & Plan (11/24/2016 4:08 PM YARN SKEINS EXAMINER): Assessment: Working on healthy eating/increased physical activity. Currently participating in weight management clinic at [facility]. Plan: -Continue to follow Mood disorder 11/24/2016 Oppositional defiant disorder 11/24/2016 Assessment & Plan (11/24/2016 3:00 PM YARN SKEINS EXAMINER): Assessment: Previously diagnosed with ODD. Gets therapy [...] Psychology. Assessment & Plan (11/24/2016 4:08 PM YARN SKEINS EXAMINER): Assessment: PHQ-9 score 10 today. Endorses depressive symptoms daily. Previously on fluoxetine 10 mg, not currently on any medications. Concern for exacerbation of ODD/bahvioral issues with starting anti depressant medications. Will defer to Psychiatry for treatment of multiple Psychiatric problems. Plan: -Referral to Psychiatry Sleep disorder 11/24/2016 Assessment & Plan (11/24/2016 2:51 PM YARN SKEINS EXAMINER): Assessment: Has trouble falling asleep, stays up late playing games and usually goes to bed around 3am. As a result, falls asleep at school. Plan: -Prescription for Melatonin 5 mg Encounter for WCC (well child check) with abnorm al findings 11/24/2016 Assessment & Plan (11/24/2016 3:00 PM YARN SKEINS EXAMINER): Lane Busch is here for his adolescent well child check and has normal growth with good interval weight gain and normal development. Immunizations up to date Dental referral for prevention Age appropriate anticipatory guidance provided Return in 2 months Behavior concern 11/24/2016 Assessment & Plan (12/28/2017 10:15 PM YARN SKEINS EXAMINER): Assessment: Over the past 6 months, patient has been experiencing a depressed mood associated comments referring to suicidal ideations. Evaluated by therapist who has noted symptoms associated depression, SI requiring creation of a safety plan and auditory hallucinations. During interview, patient denies SI/HI/AVH and that his previous comments have been vocalized due to frustration. Plan Contact therapist at [facility] for further details into patient's case Counseled to continue working with therapist at scheduled appointments Follow up at [facility] in 2-[address] Velasquez or Dr. Vasquez Consideration for initiation of anti-depressants based on communication with the therapist as well as reevaluation during visit Per mother, patient has follow-up appointment with psychology in February Assessment & Plan (11/24/2016 4:04 PM YARN SKEINS EXAMINER): Assessment: H/o multiple behavioral diagnoses, including ODD, [...] hrs Assessment & Plan (11/24/2016 3:00 PM YARN SKEINS EXAMINER): Assessment: History of elevated transaminases, biopsy in [...] ENT Assessment & Plan (11/24/2016 4:09 PM YARN SKEINS EXAMINER): Assessment: History of multiple ear infections. Ears scarred on exam today. Hearing decreased in left ear, normal in right. No signs of infection. Plan: -Repeat hearing screen and ear exam at next visit Autistic disorder 01/06/2013 Assessment & Plan (11/24/2016 3:59 PM YARN SKEINS EXAMINER): Assessment: Previously diagnosed with autism. Attends 7th grade at [employer], has IEP. Getting therapy at school, has upcoming appt with Psychology. Plan: -Referral to Psychiatry -Continue to monitor, f/u in 2 months Gallstones Fatty liver disease, nonalcoholic Immunizations Immunization Administration Dates Next Due DTaP VACCINE IM (6wk-6yrs) 11/03/2008,,03/23/2004,2003, HEP A PEDS 2 DOSE 06/01/2006,11/02/2005 HEP B VACCINE, PED/ADOL 03/23/2004,2003,,2003 HIB-PRP-T 4 DOSE 10/31/2004,03/23/2004, 4,2003 Human Papilloma Virus Vaccine 02/07/2016 INFLUENZA A [id number] VACCINE 02/17/2010, 0 INFLUENZA VACCINE 02/07/2016, 2,08/22/2011,10/29/2009, [...] on file Legal Sex Male 5:42 AM YARN SKEINS EXAMINER Gender Identity Not on file Sexual Orientation [...] this topic Medical Devices Implanted Type Area [employer] Device Identifier Shelf Expiration Date Model / Serial / Lot Log [id number] - Tympanostomy Tubes [facility] - 1 - Tube Vent Cllr Butn 3mm X 1.5mm X 1.27mm Implanted:Qty: 2 on 02/11/2013 by Steve Greenfield MD at [facility] Bilateral : Ear [employer] 10/21/2017 [id number] / / [id number] Procedures Procedure Name Priority Date/Time Associated Diagnosis Comments HEPATITIS SCREEN ACUTE Routine 10/13/2015 10:39 AM YARN SKEINS EXAMINER Elevated liver enzymes from Last 3 Months or Most Recently Relevant to Health Maintenance Results * HEPATITIS SCREEN ACUTE (10/13/2015 10:39 AM YARN SKEINS EXAMINER) HAV Antibody IgM Non Reactive Non Reactive 10/15/2015 8:56 AM [facility] HBsAg Non Reactive Non Reactive 10/15/2015 8:56 AM [facility] HBc Antibody IgM Non Reactive Non Reactive 10/15/2015 8:56 AM [facility] HCV Antibody Screen Non Reactive Non Reactive 10/15/2015 8:56 AM [facility] HCV S/C Ratio 0.12 0.00 - 0.79 10/15/2015 8:56 AM [facility] Comment: Wuzfyz-oo-tuakuf ratio (S/CO) <0.80: Non Reactive Blood BLOOD SPECIMEN / Unknown Lab Venipuncture / Unknown 10/13/2015 10:39 AM YARN SKEINS EXAMINER 10/13/2015 11:36 AM YARN SKEINS EXAMINER Narrative [facility] - 10/15/2015 8:56 AM YARN SKEINS EXAMINER Non Reactive - Antibodies to Hepatitis C virus (HCV) were not detected, result does not exclude early acute HCV infection. Non Reactive - Antibodies to Hepatitis C virus (HCV) were not detected, result does not exclude early acute HCV infection. Ayush Hoffmann MD LAB - CHEMISTRY ORDERABLES Final Result [facility] [place] [address] from Last 3 Months or Most Recently Relevant to Health Maintenance Insurance MEDICAID - [place] MEDICAID - OUT OF STATE [place] [employer] MEDICAID - OUT OF STATE Advance Directives * Full Code (Latest Code Status on File) Date Activated Date Inactivated Comments 02/15/2017 1:43 PM 02/16/2017 1:43 PM * Full Code Date Activated Date Inactivated Comments 01/17/2017 7:57 PM 01/20/2017 2:57 PM Care Teams Catalyst Operator Gasoline Relationship Specialty Start Date End Date Abhijit López MD [address] [place] [phone] PCP - General 12/31/18 Leanne Grimes DO [address] [place] [id number] Edi Specialist Student Resident 04/21/19
--- NOTE | 2025-02-08 12:21 | ED_ITS ---
HPI - General Adult General Chief complaint: Unspecified Stated complaint: L leg pain without injury, GUADARRAMA, dizziness Time Seen by Provider: 02/08/25 11:26 History of Present Illness HPI narrative: Since Check, patient has had a persistent cough, he has also had some pain to his mid lower back, and pain that runs from the lateral right knee down to his ankle. Related Data Home Medications ?Medication ?Instructions ?Recorded ?Confirmed ?Last Taken ?Type divalproex 500 mg tablet,delayed mg PO 10/21/24 Unknown History release hydroxyzine pamoate 25 mg capsule mg 10/21/24 Unknown History olanzapine 20 mg tablet mg 10/21/24 Unknown History trazodone 50 mg tablet mg 10/21/24 Unknown History Allergies Allergy/AdvReac Type Severity Reaction Status Date / Time guanfacine Allergy Unknown Unknown Verified 10/21/24 19:54 Review of Systems 2 Review of Systems: All systems reviewed & are unremarkable except as noted in HPI and below PMFSH Past Medical History Medical History Bipolar disorder Fatty liver Asperger's disorder Does not like people touching him. Surgical History Surgical History Hx of cholecystectomy Hx of tonsillectomy Family History Family History Mother Family history non-contributory Social History Social History Substance use: current Substance use type: marijuana Gender identity (if verbalized by the patient): Male Spiritual care concerns: No Exam 2 Narrative: EXAMINATION OF ORGAN SYSTEMS/BODY AREAS: Constitutional: Vital signs per nursing GENERAL:[No acute distress, non-toxic appearing.] HEAD: Normal with no signs of head trauma. EYES: EOMI, conjunctiva normal ENT: Hearing grossly intact LUNGS: Slightly tachypneic HEART: Tachycardic in the room ABD: [Soft], [nontender to palpation] EXT: Normal range of motion SKIN: [No rashes or lesions.] NEURO: [Alert and oriented x 3. No gross focal sensory or strength deficits.] Able to ambulate but with a slightly antalgic gait PSYCH: Anxious affect Course Vital Signs Vital signs: Vital Signs Temperature 98.4 F 02/08/25 11:17 Pulse Rate 97 02/08/25 11:17 Respiratory Rate 20 02/08/25 11:17 Blood Pressure 142/84 H 02/08/25 11:17 Pulse Oximetry 99 02/08/25 11:17 Oxygen Delivery Room Air 02/08/25 11:17 Temperature 98.4 F 02/08/25 11:17 Pulse Rate 97 02/08/25 11:17 Respiratory Rate 14 02/08/25 11:17 Blood Pressure 142/84 H 02/08/25 11:17 Pulse Oximetry 98 02/08/25 11:17 Oxygen Delivery Room Air 02/08/25 11:17 Medical Decision Making MDM Narrative Medical decision making narrative: Patient presenting with chronic cough and knee pain, he is well-appearing, clear to auscultation bilaterally, normal range of motion but a very barely noticeable slight limp with ambulation. Neurovascularly intact. Labs within acceptable limits including a negative D-dimer, knee x-ray does show potential sclerosis of the medial tibia plateau, chest x-ray is clear. I discussed the findings with them, he does state that he often will have pretty bad heartburn so I wonder if this may be causing his chronic cough, will put him on Pepcid and Flonase and have him follow with Orthopedics for further evaluation and treatment. Patient and mother at bedside agreeable to the plan. Vital Signs Vital Signs: Vital Signs Temperature 98.4 F 02/08/25 11:17 Pulse Rate 97 02/08/25 11:17 Respiratory Rate 20 02/08/25 11:17 Blood Pressure 142/84 H 02/08/25 11:17 Pulse Oximetry 99 02/08/25 11:17 Oxygen Delivery Room Air 02/08/25 11:17 Temperature 98.4 F 02/08/25 11:17 Pulse Rate 97 02/08/25 11:17 Respiratory Rate 14 02/08/25 11:17 Blood Pressure 142/84 H 02/08/25 11:17 Pulse Oximetry 98 02/08/25 11:17 Oxygen Delivery Room Air 02/08/25 11:17 Lab Data 02/08/25 12:22 02/08/25 12:22 Labs: Lab Results 04/20/25 Range/Units 12:22 WBC 9.5 (4.5-10.0) K/mm3 RBC 5.92 (4.6-6.20) M/mm3 Hgb 16.5 (14.0-18.0) g/dL Hct 51.1 (42.0-52.0) % MCV 86.3 (80-100) fl MCH 27.9 (26-34) pg MCHC 32.3 (32-36) g/dl RDW 13.2 (11.5-14.5) % Plt Count 324 (150-375) k/mm3 MPV 9.8 (7.4-10.4) fl Immature Gran % (Auto) 0.5 (0-0.5) % Neut % (Auto) 67.5 (45.5-73.1) % Lymph % (Auto) 21.8 (18.3-44.2) % [place] % (Auto) 6.8 (2.6-8.5) % Eos % (Auto) 2.9 (0-4.4) % Baso % (Auto) 0.5 (0.2-1.2) % Lymph # (Auto) 2.08 (0.9-3.2) K/mm3 [place] # (Auto) 0.7 H (0.1-0.6) K/mm3 Eos # (Auto) 0.3 (0-0.3) K/mm3 Baso # (Auto) 0.1 (0.0-0.1) K/mm3 Abs Immat Gran (auto) 0.05 H (0.00-0.031) K/mm3 Absolute Neuts (auto) 6.4 (1.3-6.7) K/mm3 Absolute Nucleated RBC 0.000 (0.0-0.012) K/mm3 Nucleated RBC % 0.0 (0.0-0.2) % D-Dimer 0.38 (<0.48) ug/mL Sodium 141 (137-145) mmol/L Potassium 4.0 (3.4-5.0) mmol/L Chloride 102 (98-107) mmol/L Carbon Dioxide 29 (22-30) mmol/L Anion Gap 10 (4-12) mmol/L BUN 12 (9-20) mg/dL Creatinine 0.93 (0.7-1.3) mg/dL Estim Creat Clear Calc 151 ml/min Estimated GFR > 60 (59 - ) Glucose 97 (65-110) mg/dL Calcium 9.4 (8.4-10.2) mg/dL Discharge Plan Discharge Clinical Impression: Cough, Chronic knee pain Patient Disposition: Home Condition: Stable Instructions: Chronic Cough (ED), Knee Pain (ED) Additional Instructions: Please follow up with the doctors as scheduled and you can always return for any further issues. Patient Language: Turkish Prescriptions: New famotidine 20 mg tablet 20 mg PO DAILY Qty: 30 0RF fluticasone propionate [Allergy Relief (fluticasone)] 50 mcg/actuation spray,suspension 1 spray intranasal DAILY Qty: 16 0RF Rx Instructions: administer into each nostril No Action trazodone 50 mg tablet divalproex 500 mg tablet,delayed release (DR/EC) PO olanzapine 20 mg tablet hydroxyzine pamoate 25 mg capsule azithromycin 250 mg tablet See Rx Instructions .ROUTE .COMPLEX Qty: 6 0RF Rx Instructions: For 250 mg dose pack: take 500 mg today (day 1), then 250 mg for 4 days (days 2-5) amoxicillin-pot clavulanate 875-125 mg tablet 1 tablet PO Q12H Qty: 20 0RF prednisone 50 mg tablet 50 mg PO DAILY Qty: 5 0RF albuterol sulfate 90 mcg/actuation aero powdr breath act w/sensor 2 inh inhalation Q6H Qty: 1 0RF Follow-up/Referrals: New Meza MD [Physician] - 2 Days UNKNOWN,DOCTOR [Primary Care Provider] -
[2025-02-08 12:28] LABS: Basophils Absolute Auto 0.1 K/mm3 (0.0-0.1); Basophils Percent Auto 0.5 % (0.2-1.2); Eosinophils Absolute Auto 0.3 K/mm3 (0-0.3); Eosinophils Percent Auto 2.9 % (0-4.4); Hematocrit 51.1 % (42.0-52.0); Hemoglobin 16.5 g/dL (14.0-18.0); Immature Granulocyte Absolute 0.05 K/mm3 (0.00-0.031); Immature Granulocyte Percent A 0.5 % (0-0.5); Lymphocytes Absolute Auto 2.08 K/mm3 (0.9-3.2); Lymphocytes Percent Auto 21.8 % (18.3-44.2); Mean Corpuscular HGB Conc 32.3 g/dl (32-36); Mean Corpuscular Hemoglobin 27.9 pg (26-34); Mean Corpuscular Volume 86.3 fl (80-100); Mean Platelet Volume 9.8 fl (7.4-10.4); Monocytes Absolute Auto 0.7 K/mm3 (0.1-0.6); Monocytes Percent Auto 6.8 % (2.6-8.5); Neutrophils Absolute Auto 6.4 K/mm3 (1.3-6.7); Neutrophils Percent Auto 67.5 % (45.5-73.1); Platelet Count Result 324 k/mm3 (150-375); Red Blood Count 5.92 M/mm3 (4.6-6.20); Red Cell Distribution Width 13.2 % (11.5-14.5); White Blood Count 9.5 K/mm3 (4.5-10.0)
[2025-02-08 12:43] LABS: Anion Gap 10 mmol/L (4-12); Blood Urea Nitrogen 12 mg/dL (9-20); Calcium 9.4 mg/dL (8.4-10.2); Carbon Dioxide 29 mmol/L (22-30); Chloride 102 mmol/L (98-107); Estimated CRCL calculation 151 ml/min; Estimated Glomerular Filt Rate > 60; Glucose 97 mg/dL (65-110); Sodium 141 mmol/L (137-145)
[2025-02-08 12:58] LABS: D Dimer 0.38 ug/mL (<0.48)
[2025-02-08 13:37] VITALS: BP 117/82; PULSE 72; RESP 18; TEMP 36.7; O2SAT 97
== END 2025-02-08 13:40 | disposition home or self-care (01) ==
PROVIDERS: Emergency Provider Emergency Medicine
DX: R05.3 Chronic cough (principal); M25.561 Pain in right knee; G89.29 Other chronic pain; F84.5 Asperger's syndrome; F31.9 Bipolar disorder, unspecified; Z90.49 Acquired absence of other specified parts of digestive tract; Z79.899 Other long term (current) drug therapy
CPT/HCPCS: 36415; 71046; 73562; 80048; 85025; 85380; 99284